=== PATIENT | male | born 1960 | race Asian ===

== ENCOUNTER → 2022-02-26 10:50 | Outpatient (CLI) | payer OTHER, SELFPAY ==
[2022-02-26 12:09] LABS: Add Manual Diff / Slide Review NO; Basophils Absolute Auto 0 /uL (0-100); Basophils Percent Auto 0.5 % (0-2); Eosinophils Absolute Auto 100 /uL (0-450); Eosinophils Percent Auto 3.1 % (2-4); Hematocrit 46.8 % (41-53); Hemoglobin 15.7 g/dL (13.5-17.5); Lymphocytes Absolute Auto 1600 /uL (1100-4500); Lymphocytes Percent Auto 33.5 % (25-40); Mean Corpuscular HGB Conc 33.6 % (30-36); Mean Corpuscular Volume 89.3 fL (80-100); Monocytes Absolute Auto 400 /uL (0-900); Monocytes Percent Auto 8.5 % (3-14); Neutrophils Absolute Auto 2500 /uL (1500-7000); Neutrophils Percent Auto 54.4 % (50-75); Platelet Count 285 X10^3/uL (150-400); Red Blood Cell Count 5.24 X10^6/uL (4.5-5.9); Red Cell Distribution Width 13.7 % (11.6-14.8); White Blood Cell Count 4.7 X10^3/uL (4.5-11.0)
[2022-02-26 12:33] LABS: Alanine Aminotransferase 46 IU/L (<50); Albumin 4.5 g/dL (3.5-5.0); Albumin Globulin Ratio 1.3 (1.0-2.8); Alkaline Phosphatase 82 U/L (38-126); Aspartate Aminotransferase 44 IU/L (17-59); BUN Creatinine Ratio 26.5 (6-22); Bilirubin Total 1.2 mg/dL (0.2-1.3); Blood Urea Nitrogen 26 mg/dL (9-20); Calcium 8.8 mg/dL (8.4-10.2); Carbon Dioxide 28 mmol/L (22-32); Chloride 106 mmol/L (98-107); Cholesterol 132 mg/dL (140-199); Estimated Glomerular Filt Rate > 60 mL/min (>60); Globulin 3.5 g/dL (1.7-4.1); Glucose 91 mg/dL (80-110); HDL Cholesterol 42 mg/dL (40-60); HEMOLYSIS < 15 (0-50); LDL Cholesterol Calculated 75 mg/dL (<100); Potassium 4.7 mmol/L (3.4-5.1); Sodium 142 mmol/L (137-145); Triglycerides 75 mg/dL (35-150)
== END ==
PROVIDERS: PCP Family Medicine; Referring Provider Family Medicine; Visit Provider Family Medicine
DX: E78.5 Hyperlipidemia, unspecified (principal); I10 Essential (primary) hypertension; Z12.11 Encounter for screening for malignant neoplasm of colon
CPT/HCPCS: 36415; 80053; 80061; 85025

== ENCOUNTER → 2022-05-14 12:12 | Outpatient (CLI) | payer OTHER, SELFPAY ==
[2022-05-14 14:31] LABS: Prostate Specific Antigen Scrn 3.83 ng/mL (0.1-4.0)
== END ==
PROVIDERS: PCP Family Medicine; Referring Provider Family Medicine; Visit Provider Family Medicine
DX: Z12.5 Encounter for screening for malignant neoplasm of prostate (principal)
CPT/HCPCS: 36415; G0103

== ENCOUNTER → 2022-07-29 09:04 | Outpatient (CLI) | payer OTHER, SELFPAY ==
[2022-07-29 11:05] LABS: COVID19 -Nasal RAPID Negative (Negative)
== END ==
PROVIDERS: PCP Family Medicine; Visit Provider Surgery
DX: Z20.822 Contact with and (suspected) exposure to COVID-19 (principal); Z01.812 Encounter for preprocedural laboratory examination
CPT/HCPCS: 87635; C9803

== ENCOUNTER 2022-07-30 12:12 | Day surgery (SDC) | payer OTHER, SELFPAY ==
[2022-07-30] VITALS (7 sets, daily range): BP systolic 71–130; BP diastolic 35–89; PULSE 68–92; RESP 15–17; TEMP 36.1–36.3; O2SAT 94–96; BMI 28.7
[2022-07-30] MEDS: LACTATED RINGERS 1,000 ML 200 ML IV (12:56)
--- NOTE | 2022-07-30 12:59 | PM.HP.1 ---
History of Present Illness History of Present Illness Date Patient Seen: 07/30/22 Time Patient Seen: 12:59 Chief complaint: SDC Narrative: The patient presents for colorectal screening. Personal history of colonic polyps, last colonoscopy 10 years ago.. No personal or family history of colon cancer. On further history denies any recent gastrointestinal symptoms. No nausea, vomiting, abdominal pain, loss of appetite, unexplained weight loss, change in bowel habits, diarrhea, constipation, melena, hematochezia, or bright red blood per rectum. Patient History Medical History (Updated 05/14/22 @ 11:56 by Chris Mcgill DO) Allergies (~1967) Chicken pox (~1965) Chronic back pain (~2017) Eczema (~2013) Glaucoma (~2015) Gout (~2014) Hearing loss (~2020) HTN (hypertension) (~2005) Hyperlipidemia (~2014) Madarosis (~2017) Neck pain (~2017) Osteoarthritis (~2020) Pneumonia (~2018) Prediabetes (~2019) Restless leg syndrome (~2019) Retinal detachment (~2015) Sleep apnea (~2019) Suspicious nevus Urinary incontinence (~2019) Viral URI with cough Surgical History (Updated 02/11/22 @ 21:18 by Carol Maldonado) Anesthesia History of colonoscopy (~2011) History of inguinal hernia repair (~1957) History of oral surgery (~1976) Suture of skin wound (~1966) Family & Social History Family History (Updated 02/11/22 @ 21:19 by Carol Maldonado) Father Hypertension Hyperlipidemia Mother Hypertension Grandmother Alzheimer's disease Social History: household members spouse Tobacco & Substance use: Smoking Status Never smoker alcohol intake never Substance Use Type does not use Meds Home Medications and Allergies Home Medications Medication Instructions Recorded Confirmed Type lisinopril 10 mg tablet 10 mg PO DAILY 01/07/22 07/30/22 History simvastatin 20 mg tablet 20 mg PO DAILY 01/07/22 07/30/22 History tamsulosin 0.4 mg capsule 0.8 mg PO DAILY #180 caps 04/08/22 07/30/22 Rx Allergies Allergy/AdvReac Type Severity Reaction Status Date / Time cat dander Allergy Mild Verified 07/30/22 12:43 dog dander Allergy Mild Verified 07/30/22 12:43 grass pollen Allergy Mild Verified 07/30/22 12:43 Exam Vital Signs (past 8 hours): - 07/30/22 12:48 Temperature 97.1 F L Pulse Rate 92 H Respiratory Rate 16 Blood Pressure 130/89 Pulse Oximetry 94 Oxygen Delivery Method Room Air Oxygen Delivery Method Room Air Narrative Exam Narrative: General adult male alert oriented no acute distress Abdomen soft nontender nondistended Assessment & Plan Assessment & Plan narrative: The patient requires colorectal screening and colonoscopy is recommended. Technical details were discussed. Risks, benefits, alternatives explained. Risks including but not limited to myocardial infarction, aspiration, bleeding, pain, missed lesion, incomplete examination, need for further radiographic studies, colonic perforation, and need for major abdominal surgery were discussed. All questions were answered to their satisfaction, and they are in agreement with this plan. Time Spent With Patient Critical Care time: I spent a total of [] minutes of critical care time on this patient's care today; this time is exclusive of procedural time.
--- NOTE | 2022-07-30 13:00 | PM.OP.COLON ---
Operative Date/Time/Diagnoses Date of procedure: 07/30/22 Time of procedure: 13:00 Pre-op diagnosis: Screening colonoscopy Post-op diagnosis: same Procedure & Clinicians Study performed: Colonoscopy Same procedure as scheduled: Yes Indications: Screening Surgeon: Willard Talavera Procedure Notes Procedure in detail: The history and physical was performed/updated and the patient is ASA class is 2. The procedure was discussed in detail with the patient. Potential risks complications including infection, bleeding, missed diagnosis, perforation, need for surgery, and were explained. Their questions were answered and informed consent was obtained. Patient was brought to the procedure room and placed standard monitoring equipment. The patient's vital signs were monitored continuously throughout the entire procedure. Prior to starting time-out was performed. The patient was placed in the left lateral recumbent position. Procedural sedation was administered by anesthesia. Examination began with a thorough inspection of the perianal area there was no evidence of fissures, fistulae, external hemorrhoids or cutaneous malignancy. The colonoscopy scope was then placed into the anal canal and was advanced to the cecum, which was identified by the ileocecal valve, the appendiceal orifice and the confluence of the taenia. The scope was then slowly withdrawn examining colon thoroughly in all directions, irrigating it of any residual stool. FINDINGS 1. No masses or polyps 2. Normal colonoscopy The patient tolerated the procedure well. They will be discharged once criteria are met. The prep was of good/excellent quality. The withdrawl time was 6 minutes. Specimen(s): none sent Complications: none Impression: Normal colonoscopy Post-procedure Recommendations: Colonoscopy in 10 years and High fiber diet Disposition: same day surgery
== END 2022-07-30 15:03 | disposition home or self-care (01) ==
PROVIDERS: PCP Family Medicine; Referring Provider Surgery; Visit Provider Surgery
PROC: 0DJD8ZZ Inspection of Lower Intestinal Tract, Via Natural or Artificial Opening Endoscopic (ICD-10-PCS; CPT 45378; principal; 2022-07-30 13:15)
DX: Z12.11 Encounter for screening for malignant neoplasm of colon (principal); I10 Essential (primary) hypertension; E78.5 Hyperlipidemia, unspecified; R73.03 Prediabetes; G47.30 Sleep apnea, unspecified
CPT/HCPCS: 45378; J2704

== ENCOUNTER → 2023-02-24 10:35 | Outpatient (CLI) | payer BC, OTHER, SELFPAY ==
[2023-02-24 12:22] LABS: Add Manual Diff / Slide Review NO; Basophils Absolute Auto 0 /uL (0-100); Basophils Percent Auto 0.5 % (0-2); Eosinophils Absolute Auto 100 /uL (0-450); Eosinophils Percent Auto 2.7 % (2-4); Hematocrit 45.3 % (41-53); Hemoglobin 15.8 g/dL (13.5-17.5); Lymphocytes Absolute Auto 1500 /uL (1100-4500); Lymphocytes Percent Auto 35.8 % (25-40); Mean Corpuscular HGB Conc 34.8 % (30-36); Mean Corpuscular Hemoglobin 30.5 PG (26-34); Mean Corpuscular Volume 87.6 fL (80-100); Monocytes Absolute Auto 400 /uL (0-900); Monocytes Percent Auto 9.9 % (3-14); Neutrophils Absolute Auto 2200 /uL (1500-7000); Neutrophils Percent Auto 51.1 % (50-75); Platelet Count 256 X10^3/uL (150-400); Red Blood Cell Count 5.17 X10^6/uL (4.5-5.9); Red Cell Distribution Width 13.4 % (11.6-14.8); White Blood Cell Count 4.3 X10^3/uL (4.5-11.0)
[2023-02-24 12:54] LABS: Alanine Aminotransferase 37 IU/L (<50); Albumin 4.4 g/dL (3.5-5.0); Albumin Globulin Ratio 1.3 (1.0-2.8); Alkaline Phosphatase 63 U/L (38-126); Aspartate Aminotransferase 45 IU/L (17-59); BUN Creatinine Ratio 23.2 (6-22); Bilirubin Total 2.9 mg/dL (0.2-1.3); Blood Urea Nitrogen 23 mg/dL (9-20); Calcium 8.6 mg/dL (8.4-10.2); Carbon Dioxide 27 mmol/L (22-32); Chloride 104 mmol/L (98-107); Cholesterol 126 mg/dL (140-199); Estimated Glomerular Filt Rate > 60 mL/min (>60); Globulin 3.4 g/dL (1.7-4.1); Glucose 97 mg/dL (80-110); HDL Cholesterol 42 mg/dL (40-60); HEMOLYSIS < 15 (0-50); LDL Cholesterol Calculated 74 mg/dL (<100); Potassium 3.9 mmol/L (3.4-5.1); Sodium 138 mmol/L (137-145); Total Protein 7.8 g/dL (6.3-8.2); Triglycerides 48 mg/dL (35-150)
[2023-02-24 13:22] LABS: Prostate Specific Antigen Scrn 4.07 ng/mL (0.1-4.0)
[2023-02-25 05:12] LABS: x Labcorp Estim. Avg Glu (eAG) 111 mg/dL (.); x Labcorp Hemoglobin A1c 5.5 % (4.8-5.6)
== END ==
PROVIDERS: PCP Family Medicine; Referring Provider Family Medicine; Visit Provider Family Medicine
DX: E78.5 Hyperlipidemia, unspecified (principal); I10 Essential (primary) hypertension; Z12.5 Encounter for screening for malignant neoplasm of prostate; R73.03 Prediabetes
CPT/HCPCS: 36415; 80053; 80061; 83036; 85025; G0103

== ENCOUNTER 2023-08-15 13:45 | Outpatient (RCR) | payer BC, MEDICARE, OTHER, SELFPAY ==
--- NOTE | 2023-04-17 17:36 | PT.OIE ---
Current Diagnoses Other chronic pain (04/17/23) Stiffness of other specified joint, not elsewhere classified (04/17/23) Cervicalgia (04/17/23) Dorsalgia, unspecified (04/17/23) Past Medical History (Last Updated 03/06/23 @ 16:01 by Chris Mcgill DO) Allergies (~1967) Chicken pox (~1965) Chronic back pain (~2017) Eczema (~2013) Excessive cerumen in right ear canal Glaucoma (~2015) Gout (~2014) Hearing loss (~2020) HTN (hypertension) (~2005) Hyperlipidemia (~2014) Madarosis (~2017) Neck pain (~2017) Osteoarthritis (~2020) Pneumonia (~2018) Prediabetes (~2019) Restless leg syndrome (~2019) Retinal detachment (~2015) Sleep apnea (~2019) Suspicious nevus Urinary incontinence (~2019) Viral URI with cough Past Surgical History (Last Updated 02/11/22 @ 21:18 by Carol Maldonado) Anesthesia History of colonoscopy (~2011) History of inguinal hernia repair (~1957) History of oral surgery (~1976) Suture of skin wound (~1966) Visit Care Team Role Provider Type Chris Mcgill DO Attending Provider Physician Family Provider Primary Care Provider Referring Provider Specialty: [facility] Address: [address] [place] [address], [facility] Email: Physical Therapy Initial Evaluation PT-OP-A Visit Information Start: 04/17/23 14:20 Freq: Status: Active Protocol: Document 04/17/23 11:00 DCW (Rec: 04/17/23 14:33 [facility] [id number]) Out-Patient Physical Therapy Visit Information Visit Information Visit Type Initial Evaluation Visit Start Time 11:00 Visit Stop Time 11:45 Total Visit Minutes 45 Visit Number 1 Number of LABORER GOLD LEAF Visits 0 Evaluation Information Evaluation Date 04/17/23 PT-OP-B Current Condition Start: 04/17/23 14:20 Freq: Status: Active Protocol: Document 04/17/23 11:00 DCW (Rec: 04/17/23 14:33 [facility] [id number]) Current Condition History of Current Condition Onset Date Long-standing history Current Complaints chronic low back and neck pain History of Current Condition Pt is a 63 year old male with a multi-year history of cervical and low back pain. 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 Reports that he was treated for this pain in the [employer] between [id number], was then transferred to [place], and had PT between [id number]. Pt retired in 2021, noticed his pain decreased significantly, but then began working once again, and his pain all returned. Pt notes that as a dentist, he has to maintain a fairly specific posture when bending over and working on a patient. Pt reports he is always on the pt 's right-hand side, which then , as he faces them, causes him to lean to his right to get to their mouth. Pt reports that he has occasionally experienced numbness in his hands, bad enough that he had difficulty holding his work instruments, but it has not happened for a while, and he can't remember any specific pattern. Additionally notes his low back typically bothers him when bending over to lift heavier objects, despite using appropriate body mechanics. Treatment Goals Patient/Caregiver Goals Pt plans to work another five years until his second jail, would like to be able to do it pain free. PT-OP-C Subjective Start: 04/17/23 14:20 Freq: Status: Active Protocol: Document 04/17/23 11:00 DCW (Rec: 04/17/23 14:33 DCW [id number]) OP-PT Subjective Patient Comments Patient Comments Pt reports his previous PT treatments consisted of ~15 minutes of the therapist bending and twisting his neck , and then using hot or cold packs. Patient Reported Progress Same Patient Questionnaires Oswestry Low Back Index Oswestry Score 4/50 = 8% PT-OP-F Manual Assessment Start: 04/17/23 14:20 Freq: Status: Active Protocol: Document 04/17/23 11:00 DCW (Rec: 04/17/23 14:40 DCW [id number]) Manual Assessments Soft Tissue Assessment Soft Tissue Mobility Assessment Moderate-severe tone R cervical paraspinals, R suboccipitals, R upper trap, and R levator scap with tenderness to palpation 3/4: wincing and withdraw. Mild-moderate tone bilateral lumbar paraspinals PT-OP-K Range of Motion Start: 04/17/23 14:20 Freq: Status: Active Protocol: Document 04/17/23 11:00 DCW (Rec: 04/17/23 14:40 [facility] [id number]) Cervical Spine Range of Motion Cervical Spine Active Degrees Testing Position Sitting Flexion 48 Extension 45 Rotation Left 50 Rotation Right 53 Lateral Flexion Left 33 Lateral Flexion Right 31 ROM Limitations Soft Tissue Tightness,Muscle Tone,Pain Comments R-sided stiffness felt with bilateral lateral flexion Lumbar Spine Range of Motion Lumbar Spine Active Degrees Testing Position Standing Flexion 60 Extension 15 PT-OP-L Special Tests Start: 04/17/23 14:20 Freq: Status: Active Protocol: Document 04/17/23 11:00 DCW (Rec: 04/17/23 14:40 [facility] [id number]) Special Tests Cervical Spine Special Tests Slump Test Results Negative Traction Test Results Negative Spurling's Test Test Results Negative Passive Neck Flexion Test Results Negative Foraminal Compression Test Results Negative Lumbar Spine Special Tests Vertical Spine Loading Test Results Negative Straight Leg Raise Test Results Negative Manual Traction Test Results Negative Compression Test Results Negative A-P Shearing Test Results Negative PT-OP-Q Treatments Start: 04/17/23 14:20 Freq: Status: Active Protocol: Document 04/17/23 11:00 DCW (Rec: 04/17/23 14:34 [facility] [id number]) Therapeutic Exercises Sitting Exercises SCM Sitting Exercise Name SCM stretch Side right Comments HEP Upper trap Sitting Exercise Name Upper trap stretch Side right Comments HEP PT-OP-T Assessment and Plan Start: 04/17/23 14:20 Freq: Status: Active Protocol: Document 04/17/23 11:00 DCW (Rec: 04/17/23 17:36 [facility] [id number]) Physical Therapy Assessment Rehab Potential Rehabilitation Potential Good Evaluation Complexity Number of Personal Factors/Comorbidities 1-2 Number of Body Systems Impaired 4 or More Clinical Presentation at Evaluation Evolving Impairments Impairments Activity Tolerance,Functional Activities,Functional Mobility ,Pain,ROM,Soft Tissue Mobility ,Strength Goals Three Impairment Pt unable to lift heavier objects without increased low back pain Intermediate Goal (LTG) Pt to demonstrate ability to lift from floor and transfer 50# without any increase in low back pain in order to return to usual hobby activities LTG Duration 07/16/23 Two Impairment Pt demonstrates restricted cervical ROM Molecular Technologist Goal (LTG) Pt to increase cervical flexion and bilateral rotation to at least 70? each in order to improve ability to appropriately turn head to look for traffic while driving . LTG Duration 07/16/23 One Impairment Pt does not have an appropriate home exercise program Short Term Goal (STG) Pt to be independent and compliant with an appropriate home exercise program STG Duration 05/18/23 Assessment Summary Assessment Pt presents with signs and symptoms consistent with cervical pain and increased tone caused by repeated poor posturing due to work ergonomics. Pt displays moderate-sever pain in right paraspinals, upper trap, levator, and suboccipitals. At time of the evaluation, completely unable to replicate any radicular symptoms or any positive cervical or lumbar special tests, pt just seems to be hypertonic throughout right cervical and bilateral lumbar paraspinal musculature. Will likely benefit from skilled PT focusing on STM and stretching to improve tone, strengthening to increase stability, and education on abdominal bracing to help support and protect low back while lifting. Physical Therapy Plan Frequency and Duration Frequency of Treatment 2x/Week Plan of Care Start Date 04/17/23 Plan of Care End Date 07/16/23 Therapeutic Interventions Therapeutic Interventions Home Exercise Program,Joint Mobilizations,Lymphedema Management,Neuromuscular Re- education,Orthotic/Prosthetic Management,Self-Care/Home Management,Sensory Integration ,Soft Tissue Mobilization, Therapeutic Activities, Therapeutic Exercises Modalities Cold Pack/Ice Massage,Electric Stimulation,Hot Packs, Ultrasound Next Visit Focus/Plan Next Note Type Treatment Note Next Visit Plan STM, flexibility, strengthening
--- NOTE | 2023-04-17 17:36 | PT.OPPOC ---
Physical, Occupational & Speech Therapy At [facility] Current Diagnoses Other chronic pain (04/17/23) Stiffness of other specified joint, not elsewhere classified (04/17/23) Cervicalgia (04/17/23) Dorsalgia, unspecified (04/17/23) Visit Care Team Role Provider Type Chris Mcgill DO Attending Provider Physician Family Provider Primary Care Provider Referring Provider Specialty: Family Practice Address: [address] [place] [address], [facility] Email: Plan Of Care PT-OP-T Assessment and Plan Start: 04/17/23 14:20 Freq: Status: Active Protocol: Document 04/17/23 11:00 DCW (Rec: 04/17/23 17:36 DCW [id number]) Physical Therapy Assessment Rehab Potential Rehabilitation Potential Good Evaluation Complexity Number of Personal Factors/Comorbidities 1-2 Number of Body Systems Impaired 4 or More Clinical Presentation at Evaluation Evolving Impairments Impairments Activity Tolerance,Functional Activities,Functional Mobility ,Pain,ROM,Soft Tissue Mobility ,Strength Goals Three Impairment Pt unable to lift heavier objects without increased low back pain Comic Book Designer Goal (LTG) Pt to demonstrate ability to lift from floor and transfer 50# without any increase in low back pain in order to return to usual hobby activities LTG Duration 07/16/23 Two Impairment Pt demonstrates restricted cervical ROM Comic Book Designer Goal (LTG) Pt to increase cervical flexion and bilateral rotation to at least 70? each in order to improve ability to appropriately turn head to look for traffic while driving . LTG Duration 07/16/23 One Impairment Pt does not have an appropriate home exercise program Short Term Goal (STG) Pt to be independent and compliant with an appropriate home exercise program STG Duration 05/18/23 Assessment Summary Assessment Pt presents with signs and symptoms consistent with cervical pain and increased tone caused by repeated poor posturing due to work ergonomics. Pt displays moderate-sever pain in right paraspinals, upper trap, levator, and suboccipitals. At time of the evaluation, completely unable to replicate any radicular symptoms or any positive cervical or lumbar special tests, pt just seems to be hypertonic throughout right cervical and bilateral lumbar paraspinal musculature. Will likely benefit from skilled PT focusing on STM and stretching to improve tone, strengthening to increase stability, and education on abdominal bracing to help support and protect low back while lifting. Physical Therapy Plan Frequency and Duration Frequency of Treatment 2x/Week Plan of Care Start Date 04/17/23 Plan of Care End Date 07/16/23 Therapeutic Interventions Therapeutic Interventions Home Exercise Program,Joint Mobilizations,Lymphedema Management,Neuromuscular Re- education,Orthotic/Prosthetic Management,Self-Care/Home Management,Sensory Integration ,Soft Tissue Mobilization, Therapeutic Activities, Therapeutic Exercises Modalities Cold Pack/Ice Massage,Electric Stimulation,Hot Packs, Ultrasound Next Visit Focus/Plan Next Note Type Treatment Note Next Visit Plan STM, flexibility, strengthening Plan of Care Dates Plan of Care Start Date 04/17/23 Plan of Care End Date 07/16/23 Electronically Signed by: Justin Bernard, PT 04/17/23 [id number] If you are in agreement with this Plan of Care, please return a signed and dated copy. I have reviewed this Plan of Care and certify that the skilled therapy services above are required to meet the patient?s needs. Physician Signature Date Printed Name and Credentials Clinical Instructor Signature Printed Name and Credentials
--- NOTE | 2023-04-17 17:37 | PT.OPPOC ---
Physical, Occupational & Speech Therapy At [facility] Current Diagnoses Other chronic pain (04/17/23) Stiffness of other specified joint, not elsewhere classified (04/17/23) Cervicalgia (04/17/23) Dorsalgia, unspecified (04/17/23) Visit Care Team Role Provider Type Chris Mcgill DO Attending Provider Physician Family Provider Primary Care Provider Referring Provider Specialty: Family Practice Address: [address] [place] [address], [facility] Email: Plan Of Care PT-OP-T Assessment and Plan Start: 04/17/23 14:20 Freq: Status: Active Protocol: Document 04/17/23 11:00 DCW (Rec: 04/17/23 17:36 DCW [id number]) Physical Therapy Assessment Rehab Potential Rehabilitation Potential Good Evaluation Complexity Number of Personal Factors/Comorbidities 1-2 Number of Body Systems Impaired 4 or More Clinical Presentation at Evaluation Evolving Impairments Impairments Activity Tolerance,Functional Activities,Functional Mobility ,Pain,ROM,Soft Tissue Mobility ,Strength Goals Three Impairment Pt unable to lift heavier objects without increased low back pain Appliance Repair Technician Goal (LTG) Pt to demonstrate ability to lift from floor and transfer 50# without any increase in low back pain in order to return to usual hobby activities LTG Duration 07/16/23 Two Impairment Pt demonstrates restricted cervical ROM Appliance Repair Technician Goal (LTG) Pt to increase cervical flexion and bilateral rotation to at least 70? each in order to improve ability to appropriately turn head to look for traffic while driving . LTG Duration 07/16/23 One Impairment Pt does not have an appropriate home exercise program Short Term Goal (STG) Pt to be independent and compliant with an appropriate home exercise program STG Duration 05/18/23 Assessment Summary Assessment Pt presents with signs and symptoms consistent with cervical pain and increased tone caused by repeated poor posturing due to work ergonomics. Pt displays moderate-sever pain in right paraspinals, upper trap, levator, and suboccipitals. At time of the evaluation, completely unable to replicate any radicular symptoms or any positive cervical or lumbar special tests, pt just seems to be hypertonic throughout right cervical and bilateral lumbar paraspinal musculature. Will likely benefit from skilled PT focusing on STM and stretching to improve tone, strengthening to increase stability, and education on abdominal bracing to help support and protect low back while lifting. Physical Therapy Plan Frequency and Duration Frequency of Treatment 2x/Week Plan of Care Start Date 04/17/23 Plan of Care End Date 07/16/23 Therapeutic Interventions Therapeutic Interventions Home Exercise Program,Joint Mobilizations,Lymphedema Management,Neuromuscular Re- education,Orthotic/Prosthetic Management,Self-Care/Home Management,Sensory Integration ,Soft Tissue Mobilization, Therapeutic Activities, Therapeutic Exercises Modalities Cold Pack/Ice Massage,Electric Stimulation,Hot Packs, Ultrasound Next Visit Focus/Plan Next Note Type Treatment Note Next Visit Plan STM, flexibility, strengthening Plan of Care Dates Plan of Care Start Date 04/17/23 Plan of Care End Date 07/16/23 Electronically Signed by: Justin Bernard, PT 04/17/23 [id number] If you are in agreement with this Plan of Care, please return a signed and dated copy. I have reviewed this Plan of Care and certify that the skilled therapy services above are required to meet the patient?s needs. Physician Signature Date Printed Name and Credentials Clinical Instructor Signature Printed Name and Credentials
--- NOTE | 2023-04-21 13:31 | PT.OTN ---
Current Diagnoses Other chronic pain (04/21/23) Stiffness of other specified joint, not elsewhere classified (04/21/23) Cervicalgia (04/21/23) Dorsalgia, unspecified (04/21/23) Physical Therapy Treatment Note PT-OP-A Visit Information Start: 04/17/23 14:20 Freq: Status: Active Protocol: Document 04/21/23 12:45 DCW (Rec: 04/21/23 13:30 DCW [id number]) Out-Patient Physical Therapy Visit Information Visit Information Visit Type Treatment Note Visit Start Time 11:00 Visit Stop Time 11:45 Total Visit Minutes 45 Visit Number 2 Number of BOTTOMING MACHINE OPERATOR Visits 0 Evaluation Information Evaluation Date 04/17/23 PT-OP-B Current Condition Start: 04/17/23 14:20 Freq: Status: Active Protocol: Document 04/17/23 11:00 DCW (Rec: 04/17/23 14:33 DCW [id number]) Current Condition History of Current Condition Onset Date Long-standing history Current Complaints chronic low back and neck pain History of Current Condition Pt is a 63 year old male with a multi-year history of cervical and low back pain. 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 Reports that he was treated for this pain in the [employer] between [id number], was then transfered to [place], and had PT between 8684-2095. Pt retired in 2021, noticed his pain decreased significantly, but then began working once again, and his pain all returned. Pt notes that as a dentist, he has to maintain a fairly specific posture when bending over and working on a patient. Pt reports he is always on the pt 's right-hand side, which then , as he faces them, causes him to lean to his right to get to their mouth. Pt reports that he has occasionally experienced numbness in his hands, bad enough that he had difficulty holding his work instruments, but it has not happened for a while, and he can't remember any specific pattern. Additionally notes his low back typically bothers him when bending over to lift heavier objects, despite using appropriate body mechanics. Treatment Goals Patient/Caregiver Goals Pt plans to work another five years until his second fdc, would like to be able to do it pain free. PT-OP-C Subjective Start: 04/17/23 14:20 Freq: Status: Active Protocol: Document 04/21/23 12:45 DCW (Rec: 04/21/23 13:30 DCW [id number]) OP-PT Subjective Patient Comments Patient Comments Pt reports he is feeling about the same. PT-OP-F Manual Assessment Start: 04/17/23 14:20 Freq: Status: Active Protocol: Document 04/17/23 11:00 DCW (Rec: 04/17/23 14:40 DCW [id number]) Manual Assessments Soft Tissue Assessment Soft Tissue Mobility Assessment Moderate-severe tone R cervical paraspinals, R suboccipitals, R upper trap, and R levator scap with tenderness to palpation 3/4: wincing and withdraw. Mild-moderate tone bilateral lumbar paraspinals PT-OP-K Range of Motion Start: 04/17/23 14:20 Freq: Status: Active Protocol: Document 04/17/23 11:00 DCW (Rec: 04/17/23 14:40 DCW [id number]) Cervical Spine Range of Motion Cervical Spine Active Degrees Testing Position Sitting Flexion 48 Extension 45 Rotation Left 50 Rotation Right 53 Lateral Flexion Left 33 Lateral Flexion Right 31 ROM Limitations Soft Tissue Tightness,Muscle Tone,Pain Comments R-sided stiffness felt with bilateral lateral flexion Lumbar Spine Range of Motion Lumbar Spine Active Degrees Testing Position Standing Flexion 60 Extension 15 PT-OP-L Special Tests Start: 04/17/23 14:20 Freq: Status: Active Protocol: Document 04/17/23 11:00 DCW (Rec: 04/17/23 14:40 DCW [id number]) Special Tests Cervical Spine Special Tests Slump Test Results Negative Traction Test Results Negative Spurling's Test Test Results Negative Passive Neck Flexion Test Results Negative Foraminal Compression Test Results Negative Lumbar Spine Special Tests Vertical Spine Loading Test Results Negative Straight Leg Raise Test Results Negative Manual Traction Test Results Negative Compression Test Results Negative A-P Shearing Test Results Negative PT-OP-Q Treatments Start: 04/17/23 14:20 Freq: Status: Active Protocol: Document 04/21/23 12:45 DCW (Rec: 04/21/23 13:30 DCW [id number]) Therapeutic Exercises Supine Exercises Chin tuck Supine Exercise Name Chin tuck/head lift Sitting Exercises Trunk Flexion Sitting Exercise Name Seated trunk flexion Reps/Minutes 30 hold Isometrics Sitting Exercise Name Isometric resistance vs towel Comments Cervical extension, lateral flexion Manual Therapy Treatment Soft Tissue Mobilization Cervical paraspinals Body Location Paraspinals, Suboccipitals, Upper Trap, SCM R>L Mobilization Type Strumming,Sustained Pressure, Trigger Point Release Manual Traction Cervical Details Manual cervical traction Body Position Supine PT-OP-T Assessment and Plan Start: 04/17/23 14:20 Freq: Status: Active Protocol: Document 04/21/23 12:45 DCW (Rec: 04/21/23 13:30 DCW [id number]) Physical Therapy Assessment Impairments Impairments Activity Tolerance,Functional Activities,Functional Mobility ,Pain,ROM,Soft Tissue Mobility ,Strength Goals Three Impairment Pt unable to lift heavier objects without increased low back pain Senior Living Goal (LTG) Pt to demonstrate ability to lift from floor and transfer 50# without any increase in low back pain in order to return to usual hobby activities LTG Duration 07/16/23 Two Impairment Pt demonstrates restricted cervical ROM Shop Foreman Goal (LTG) Pt to increase cervical flexion and bilateral rotation to at least 70? each in order to improve ability to appropriately turn head to look for traffic while driving . LTG Duration 07/16/23 One Impairment Pt does not have an appropriate home exercise program Short Term Goal (STG) Pt to be independent and compliant with an appropriate home exercise program STG Duration 05/18/23 Assessment Summary Assessment Pt continues to display quite significant tone throughout right cervical musculature, but responded well to both STM and TherEx today, no complaints of pain or difficulty at this time, agreeable to continue with HEP and additional strengthening. Physical Therapy Plan Frequency and Duration Frequency of Treatment 2x/Week Plan of Care Start Date 04/17/23 Plan of Care End Date 07/16/23 Therapeutic Interventions Therapeutic Interventions Home Exercise Program,Joint Mobilizations,Lymphedema Management,Neuromuscular Re- education,Orthotic/Prosthetic Management,Self-Care/Home Management,Sensory Integration ,Soft Tissue Mobilization, Therapeutic Activities, Therapeutic Exercises Modalities Cold Pack/Ice Massage,Electric Stimulation,Hot Packs, Ultrasound Next Visit Focus/Plan Next Note Type Treatment Note Next Visit Plan STM, flexibility, strengthening
--- NOTE | 2023-05-16 16:50 | PT.OTN ---
Current Diagnoses Other chronic pain (05/16/23) Stiffness of other specified joint, not elsewhere classified (05/16/23) Cervicalgia (05/16/23) Dorsalgia, unspecified (05/16/23) Physical Therapy Treatment Note PT-OP-A Visit Information Start: 04/17/23 14:20 Freq: Status: Active Protocol: Document 05/16/23 16:02 DCW (Rec: 05/16/23 16:50 DCW [id number]) Out-Patient Physical Therapy Visit Information Visit Information Visit Type Treatment Note Visit Start Time 16:02 Visit Stop Time 16:45 Total Visit Minutes 43 Visit Number 3 Number of TIME CLOCK INSPECTOR Visits 0 Evaluation Information Evaluation Date 04/17/23 PT-OP-B Current Condition Start: 04/17/23 14:20 Freq: Status: Active Protocol: Document 04/17/23 11:00 DCW (Rec: 04/17/23 14:33 DCW [id number]) Current Condition History of Current Condition Onset Date Long-standing history Current Complaints chronic low back and neck pain History of Current Condition Pt is a 63 year old male with a multi-year history of cervical and low back pain. 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 Pt retired in 2021, noticed his pain decreased significantly, but then began working once again, and his pain all returned. Pt notes that as a dentist, he has to maintain a fairly specific posture when bending over and working on a patient. Pt reports he is always on the pt 's right-hand side, which then , as he faces them, causes him to lean to his right to get to their mouth. Pt reports that he has occasionally experienced numbness in his hands, bad enough that he had difficulty holding his work instruments, but it has not happened for a while, and he can't remember any specific pattern. Additionally notes his low back typically bothers him when bending over to lift heavier objects, despite using appropriate body mechanics. Treatment Goals Patient/Caregiver Goals Pt plans to work another five years until his second care home, would like to be able to do it pain free. PT-OP-C Subjective Start: 04/17/23 14:20 Freq: Status: Active Protocol: Document 05/16/23 16:02 DCW (Rec: 05/16/23 16:50 DCW [id number]) OP-PT Subjective Patient Comments Patient Comments About the same. PT-OP-F Manual Assessment Start: 04/17/23 14:20 Freq: Status: Active Protocol: Document 04/17/23 11:00 DCW (Rec: 04/17/23 14:40 DCW [id number]) Manual Assessments Soft Tissue Assessment Soft Tissue Mobility Assessment Moderate-severe tone R cervical paraspinals, R suboccipitals, R upper trap, and R levator scap with tenderness to palpation 3/4: wincing and withdraw. Mild-moderate tone bilateral lumbar paraspinals PT-OP-K Range of Motion Start: 04/17/23 14:20 Freq: Status: Active Protocol: Document 04/17/23 11:00 DCW (Rec: 04/17/23 14:40 DCW [id number]) Cervical Spine Range of Motion Cervical Spine Active Degrees Testing Position Sitting Flexion 48 Extension 45 Rotation Left 50 Rotation Right 53 Lateral Flexion Left 33 Lateral Flexion Right 31 ROM Limitations Soft Tissue Tightness,Muscle Tone,Pain Comments R-sided stiffness felt with bilateral lateral flexion Lumbar Spine Range of Motion Lumbar Spine Active Degrees Testing Position Standing Flexion 60 Extension 15 PT-OP-L Special Tests Start: 04/17/23 14:20 Freq: Status: Active Protocol: Document 04/17/23 11:00 DCW (Rec: 04/17/23 14:40 DCW [id number]) Special Tests Cervical Spine Special Tests Slump Test Results Negative Traction Test Results Negative Spurling's Test Test Results Negative Passive Neck Flexion Test Results Negative Foraminal Compression Test Results Negative Lumbar Spine Special Tests Vertical Spine Loading Test Results Negative Straight Leg Raise Test Results Negative Manual Traction Test Results Negative Compression Test Results Negative A-P Shearing Test Results Negative PT-OP-Q Treatments Start: 04/17/23 14:20 Freq: Status: Active Protocol: Document 05/16/23 16:02 DCW (Rec: 05/16/23 16:50 DCW [id number]) Gym Equipment Therapeutic Ball Bridging Exercise Details Bridging Ball Size/Color Red - 55 cm Body Position Supine LTR Exercise Details LTR Ball Size/Color Red - 55 cm Body Position Supine Manual Therapy Treatment Soft Tissue Mobilization Lumbar Paraspinals Body Location Lumbar paraspinals Cervical paraspinals Body Location Paraspinals, Suboccipitals, Upper Trap, SCM R>L Mobilization Type Strumming,Sustained Pressure, Trigger Point Release Manual Traction Cervical Details Manual cervical traction Body Position Supine PT-OP-T Assessment and Plan Start: 04/17/23 14:20 Freq: Status: Active Protocol: Document 05/16/23 16:02 DCW (Rec: 05/16/23 16:50 DCW [id number]) Physical Therapy Assessment Impairments Impairments Activity Tolerance,Functional Activities,Functional Mobility ,Pain,ROM,Soft Tissue Mobility ,Strength Goals Three Impairment Pt unable to lift heavier objects without increased low back pain Dairy Science Teacher Goal (LTG) Pt to demonstrate ability to lift from floor and transfer 50# without any increase in low back pain in order to return to usual hobby activities LTG Duration 07/16/23 Two Impairment Pt demonstrates restricted cervical ROM [place] Goal (LTG) Pt to increase cervical flexion and bilateral rotation to at least 70? each in order to improve ability to appropriately turn head to look for traffic while driving . LTG Duration 07/16/23 One Impairment Pt does not have an appropriate home exercise program Short Term Goal (STG) Pt to be independent and compliant with an appropriate home exercise program STG Duration 05/18/23 Assessment Summary Assessment Pt continues to exhibit fairly moderate-severe cervical tone , R>L, admits he hasn't been super compliant with HEP. Reinforced importance of regular HEP performance, focused some today on core strengthening and lumbar mobility. Physical Therapy Plan Frequency and Duration Frequency of Treatment 2x/Week Plan of Care Start Date 04/17/23 Plan of Care End Date 07/16/23 Therapeutic Interventions Therapeutic Interventions Home Exercise Program,Joint Mobilizations,Lymphedema Management,Neuromuscular Re- education,Orthotic/Prosthetic Management,Self-Care/Home Management,Sensory Integration ,Soft Tissue Mobilization, Therapeutic Activities, Therapeutic Exercises Modalities Cold Pack/Ice Massage,Electric Stimulation,Hot Packs, Ultrasound Next Visit Focus/Plan Next Note Type Treatment Note Next Visit Plan STM, flexibility, strengthening
--- NOTE | 2023-05-19 17:18 | PT.OTN ---
Current Diagnoses Other chronic pain (05/19/23) Stiffness of other specified joint, not elsewhere classified (05/19/23) Cervicalgia (05/19/23) Dorsalgia, unspecified (05/19/23) Physical Therapy Treatment Note PT-OP-A Visit Information Start: 04/17/23 14:20 Freq: Status: Active Protocol: Document 05/19/23 16:30 DCW (Rec: 05/19/23 17:18 DCW [id number]) Out-Patient Physical Therapy Visit Information Visit Information Visit Type Treatment Note Visit Start Time 16:30 Visit Stop Time 17:15 Total Visit Minutes 45 Visit Number 4 Number of SUPPLY TEACHER Visits 0 Evaluation Information Evaluation Date 04/17/23 PT-OP-B Current Condition Start: 04/17/23 14:20 Freq: Status: Active Protocol: Document 04/17/23 11:00 DCW (Rec: 04/17/23 14:33 DCW [id number]) Current Condition History of Current Condition Onset Date Long-standing history Current Complaints chronic low back and neck pain History of Current Condition Pt is a 63 year old male with a multi-year history of cervical and low back pain. 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 Pt retired in 2021, noticed his pain decreased significantly, but then began working once again, and his pain all returned. Pt notes that as a dentist, he has to maintain a fairly specific posture when bending over and working on a patient. Pt reports he is always on the pt 's right-hand side, which then , as he faces them, causes him to lean to his right to get to their mouth. Pt reports that he has occasionally experienced numbness in his hands, bad enough that he had difficulty holding his work instruments, but it has not happened for a while, and he can't remember any specific pattern. Additionally notes his low back typically bothers him when bending over to lift heavier objects, despite using appropriate body mechanics. Treatment Goals Patient/Caregiver Goals Pt plans to work another five years until his second senior care, would like to be able to do it pain free. PT-OP-C Subjective Start: 04/17/23 14:20 Freq: Status: Active Protocol: Document 05/19/23 16:30 DCW (Rec: 05/19/23 17:18 DCW [id number]) OP-PT Subjective Patient Comments Patient Comments Pt notes no real change. PT-OP-F Manual Assessment Start: 04/17/23 14:20 Freq: Status: Active Protocol: Document 04/17/23 11:00 DCW (Rec: 04/17/23 14:40 DCW [id number]) Manual Assessments Soft Tissue Assessment Soft Tissue Mobility Assessment Moderate-severe tone R cervical paraspinals, R suboccipitals, R upper trap, and R levator scap with tenderness to palpation 3/4: wincing and withdraw. Mild-moderate tone bilateral lumbar paraspinals PT-OP-K Range of Motion Start: 04/17/23 14:20 Freq: Status: Active Protocol: Document 04/17/23 11:00 DCW (Rec: 04/17/23 14:40 DCW [id number]) Cervical Spine Range of Motion Cervical Spine Active Degrees Testing Position Sitting Flexion 48 Extension 45 Rotation Left 50 Rotation Right 53 Lateral Flexion Left 33 Lateral Flexion Right 31 ROM Limitations Soft Tissue Tightness,Muscle Tone,Pain Comments R-sided stiffness felt with bilateral lateral flexion Lumbar Spine Range of Motion Lumbar Spine Active Degrees Testing Position Standing Flexion 60 Extension 15 PT-OP-L Special Tests Start: 04/17/23 14:20 Freq: Status: Active Protocol: Document 04/17/23 11:00 DCW (Rec: 04/17/23 14:40 DCW [id number]) Special Tests Cervical Spine Special Tests Slump Test Results Negative Traction Test Results Negative Spurling's Test Test Results Negative Passive Neck Flexion Test Results Negative Foraminal Compression Test Results Negative Lumbar Spine Special Tests Vertical Spine Loading Test Results Negative Straight Leg Raise Test Results Negative Manual Traction Test Results Negative Compression Test Results Negative A-P Shearing Test Results Negative PT-OP-Q Treatments Start: 04/17/23 14:20 Freq: Status: Active Protocol: Document 05/19/23 16:30 DCW (Rec: 05/19/23 17:18 DCW [id number]) Therapeutic Exercises Prone Exercises I's, Y's T's Prone Exercise Name Prone I's, Y's T's Side bilateral Resistance 4# Other Exercises Wall clock Other Exercise Name Wall clock Resistance Green loop Resisted Ambulation Other Exercise Name Resisted UE Side-stepping Resistance Green loop Manual Therapy Treatment Soft Tissue Mobilization Cervical paraspinals Body Location Paraspinals, Suboccipitals, Upper Trap, SCM R>L Mobilization Type Strumming,Sustained Pressure, Trigger Point Release Manual Traction Cervical Details Manual cervical traction Body Position Supine PT-OP-T Assessment and Plan Start: 04/17/23 14:20 Freq: Status: Active Protocol: Document 05/19/23 16:30 DCW (Rec: 05/19/23 17:18 DCW [id number]) Physical Therapy Assessment Impairments Impairments Activity Tolerance,Functional Activities,Functional Mobility ,Pain,ROM,Soft Tissue Mobility ,Strength Goals Three Impairment Pt unable to lift heavier objects without increased low back pain Vacuum Tank Tender Goal (LTG) Pt to demonstrate ability to lift from floor and transfer 50# without any increase in low back pain in order to return to usual hobby activities LTG Duration 07/16/23 Two Impairment Pt demonstrates restricted cervical ROM Vacuum Tank Tender Goal (LTG) Pt to increase cervical flexion and bilateral rotation to at least 70? each in order to improve ability to appropriately turn head to look for traffic while driving . LTG Duration 07/16/23 One Impairment Pt does not have an appropriate home exercise program Short Term Goal (STG) Pt to be independent and compliant with an appropriate home exercise program STG Duration 05/18/23 Assessment Summary Assessment Pt responded well with new shoulder strengthening exercises, agreeable to additional HEP I's, Y's T's. Should help assist improve shoulder positioning due to increased upper trap and levator tone. Physical Therapy Plan Frequency and Duration Frequency of Treatment 2x/Week Plan of Care Start Date 04/17/23 Plan of Care End Date 07/16/23 Therapeutic Interventions Therapeutic Interventions Home Exercise Program,Joint Mobilizations,Lymphedema Management,Neuromuscular Re- education,Orthotic/Prosthetic Management,Self-Care/Home Management,Sensory Integration ,Soft Tissue Mobilization, Therapeutic Activities, Therapeutic Exercises Modalities Cold Pack/Ice Massage,Electric Stimulation,Hot Packs, Ultrasound Next Visit Focus/Plan Next Note Type Treatment Note Next Visit Plan STM, flexibility, strengthening
--- NOTE | 2023-05-23 17:02 | PT.OTN ---
Current Diagnoses Other chronic pain (05/23/23) Stiffness of other specified joint, not elsewhere classified (05/23/23) Cervicalgia (05/23/23) Dorsalgia, unspecified (05/23/23) Physical Therapy Treatment Note PT-OP-A Visit Information Start: 04/17/23 14:20 Freq: Status: Active Protocol: Document 05/23/23 16:15 DCW (Rec: 05/23/23 17:01 DCW [id number]) Out-Patient Physical Therapy Visit Information Visit Information Visit Type Treatment Note Visit Start Time 16:15 Visit Stop Time 17:00 Total Visit Minutes 45 Visit Number 5 Number of GUITAR REPAIRER Visits 0 Evaluation Information Evaluation Date 04/17/23 PT-OP-B Current Condition Start: 04/17/23 14:20 Freq: Status: Active Protocol: Document 04/17/23 11:00 DCW (Rec: 04/17/23 14:33 DCW [id number]) Current Condition History of Current Condition Onset Date Long-standing history Current Complaints chronic low back and neck pain History of Current Condition Pt is a 63 year old male with a multi-year history of cervical and low back pain. 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 Reports that he was treated for this pain in the [employer] between 7324-5161, was then transfered to [place], and had PT between 6240-6875. Pt retired in 2021, noticed his pain decreased significantly, but then began working once again, and his pain all returned. Pt notes that as a dentist, he has to maintain a fairly specific posture when bending over and working on a patient. Pt reports he is always on the pt 's right-hand side, which then , as he faces them, causes him to lean to his right to get to their mouth. Pt reports that he has occasionally experienced numbness in his hands, bad enough that he had difficulty holding his work instruments, but it has not happened for a while, and he can't remember any specific pattern. Additionally notes his low back typically bothers him when bending over to lift heavier objects, despite using appropriate body mechanics. Treatment Goals Patient/Caregiver Goals Pt plans to work another five years until his second halfway, would like to be able to do it pain free. PT-OP-C Subjective Start: 04/17/23 14:20 Freq: Status: Active Protocol: Document 05/23/23 16:15 DCW (Rec: 05/23/23 17:01 DCW [id number]) OP-PT Subjective Patient Comments Patient Comments Pt reports he is feeling pretty good. PT-OP-F Manual Assessment Start: 04/17/23 14:20 Freq: Status: Active Protocol: Document 04/17/23 11:00 DCW (Rec: 04/17/23 14:40 DCW [id number]) Manual Assessments Soft Tissue Assessment Soft Tissue Mobility Assessment Moderate-severe tone R cervical paraspinals, R suboccipitals, R upper trap, and R levator scap with tenderness to palpation 3/4: wincing and withdraw. Mild-moderate tone bilateral lumbar paraspinals PT-OP-K Range of Motion Start: 04/17/23 14:20 Freq: Status: Active Protocol: Document 04/17/23 11:00 DCW (Rec: 04/17/23 14:40 DCW [id number]) Cervical Spine Range of Motion Cervical Spine Active Degrees Testing Position Sitting Flexion 48 Extension 45 Rotation Left 50 Rotation Right 53 Lateral Flexion Left 33 Lateral Flexion Right 31 ROM Limitations Soft Tissue Tightness,Muscle Tone,Pain Comments R-sided stiffness felt with bilateral lateral flexion Lumbar Spine Range of Motion Lumbar Spine Active Degrees Testing Position Standing Flexion 60 Extension 15 PT-OP-L Special Tests Start: 04/17/23 14:20 Freq: Status: Active Protocol: Document 04/17/23 11:00 DCW (Rec: 04/17/23 14:40 DCW [id number]) Special Tests Cervical Spine Special Tests Slump Test Results Negative Traction Test Results Negative Spurling's Test Test Results Negative Passive Neck Flexion Test Results Negative Foraminal Compression Test Results Negative Lumbar Spine Special Tests Vertical Spine Loading Test Results Negative Straight Leg Raise Test Results Negative Manual Traction Test Results Negative Compression Test Results Negative A-P Shearing Test Results Negative PT-OP-Q Treatments Start: 04/17/23 14:20 Freq: Status: Active Protocol: Document 05/23/23 16:15 DCW (Rec: 05/23/23 17:01 DCW [id number]) Manual Therapy Treatment Soft Tissue Mobilization Cervical paraspinals Body Location Paraspinals, Suboccipitals, Upper Trap, SCM R>L Mobilization Type Strumming,Sustained Pressure, Trigger Point Release Manual Traction Cervical Details Manual cervical traction Body Position Supine PT-OP-T Assessment and Plan Start: 04/17/23 14:20 Freq: Status: Active Protocol: Document 05/23/23 16:15 DCW (Rec: 05/23/23 17:01 DCW [id number]) Physical Therapy Assessment Impairments Impairments Activity Tolerance,Functional Activities,Functional Mobility ,Pain,ROM,Soft Tissue Mobility ,Strength Goals Three Impairment Pt unable to lift heavier objects without increased low back pain Nursing Home Goal (LTG) Pt to demonstrate ability to lift from floor and transfer 50# without any increase in low back pain in order to return to usual hobby activities LTG Duration 07/16/23 Two Impairment Pt demonstrates restricted cervical ROM Nursing Home Goal (LTG) Pt to increase cervical flexion and bilateral rotation to at least 70? each in order to improve ability to appropriately turn head to look for traffic while driving . LTG Duration 07/16/23 One Impairment Pt does not have an appropriate home exercise program Short Term Goal (STG) Pt to be independent and compliant with an appropriate home exercise program STG Duration 05/18/23 Assessment Summary Assessment AROM improved some today, increased flexion 55?, extension to 50?, and rotation bilaterally to 58?. Left lateral flexion still limited to ~30?. Physical Therapy Plan Frequency and Duration Frequency of Treatment 2x/Week Plan of Care Start Date 04/17/23 Plan of Care End Date 07/16/23 Therapeutic Interventions Therapeutic Interventions Home Exercise Program,Joint Mobilizations,Lymphedema Management,Neuromuscular Re- education,Orthotic/Prosthetic Management,Self-Care/Home Management,Sensory Integration ,Soft Tissue Mobilization, Therapeutic Activities, Therapeutic Exercises Modalities Cold Pack/Ice Massage,Electric Stimulation,Hot Packs, Ultrasound Next Visit Focus/Plan Next Note Type Treatment Note Next Visit Plan STM, flexibility, strengthening
--- NOTE | 2023-06-20 15:57 | PT.OTN ---
Current Diagnoses Other chronic pain (06/20/23) Stiffness of other specified joint, not elsewhere classified (06/20/23) Cervicalgia (06/20/23) Dorsalgia, unspecified (06/20/23) Physical Therapy Treatment Note PT-OP-A Visit Information Start: 04/17/23 14:20 Freq: Status: Active Protocol: Document 06/20/23 15:15 DCW (Rec: 06/20/23 15:57 DCW [id number]) Out-Patient Physical Therapy Visit Information Visit Information Visit Type Treatment Note Visit Start Time 15:15 Visit Stop Time 16:00 Total Visit Minutes 45 Visit Number 6 Number of TRIAGE LICENSED PRACTICAL NURSE Visits 0 Evaluation Information Evaluation Date 04/17/23 PT-OP-B Current Condition Start: 04/17/23 14:20 Freq: Status: Active Protocol: Document 04/17/23 11:00 DCW (Rec: 04/17/23 14:33 DCW [id number]) Current Condition History of Current Condition Onset Date Long-standing history Current Complaints chronic low back and neck pain History of Current Condition Pt is a 63 year old male with a multi-year history of cervical and low back pain. 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 Pt retired in 2021, noticed his pain decreased significantly, but then began working once again, and his pain all returned. Pt notes that as a dentist, he has to maintain a fairly specific posture when bending over and working on a patient. Pt reports he is always on the pt 's right-hand side, which then , as he faces them, causes him to lean to his right to get to their mouth. Pt reports that he has occasionally experienced numbness in his hands, bad enough that he had difficulty holding his work instruments, but it has not happened for a while, and he can't remember any specific pattern. Additionally notes his low back typically bothers him when bending over to lift heavier objects, despite using appropriate body mechanics. Treatment Goals Patient/Caregiver Goals Pt plans to work another five years until his second fci, would like to be able to do it pain free. PT-OP-C Subjective Start: 04/17/23 14:20 Freq: Status: Active Protocol: Document 06/20/23 15:15 DCW (Rec: 06/20/23 15:57 DCW [id number]) OP-PT Subjective Patient Comments Patient Comments Pt feeling his neck is about the same. PT-OP-F Manual Assessment Start: 04/17/23 14:20 Freq: Status: Active Protocol: Document 04/17/23 11:00 DCW (Rec: 04/17/23 14:40 DCW [id number]) Manual Assessments Soft Tissue Assessment Soft Tissue Mobility Assessment Moderate-severe tone R cervical paraspinals, R suboccipitals, R upper trap, and R levator scap with tenderness to palpation 3/4: wincing and withdraw. Mild-moderate tone bilateral lumbar paraspinals PT-OP-K Range of Motion Start: 04/17/23 14:20 Freq: Status: Active Protocol: Document 04/17/23 11:00 DCW (Rec: 04/17/23 14:40 DCW [id number]) Cervical Spine Range of Motion Cervical Spine Active Degrees Testing Position Sitting Flexion 48 Extension 45 Rotation Left 50 Rotation Right 53 Lateral Flexion Left 33 Lateral Flexion Right 31 ROM Limitations Soft Tissue Tightness,Muscle Tone,Pain Comments R-sided stiffness felt with bilateral lateral flexion Lumbar Spine Range of Motion Lumbar Spine Active Degrees Testing Position Standing Flexion 60 Extension 15 PT-OP-L Special Tests Start: 04/17/23 14:20 Freq: Status: Active Protocol: Document 04/17/23 11:00 DCW (Rec: 04/17/23 14:40 DCW [id number]) Special Tests Cervical Spine Special Tests Slump Test Results Negative Traction Test Results Negative Spurling's Test Test Results Negative Passive Neck Flexion Test Results Negative Foraminal Compression Test Results Negative Lumbar Spine Special Tests Vertical Spine Loading Test Results Negative Straight Leg Raise Test Results Negative Manual Traction Test Results Negative Compression Test Results Negative A-P Shearing Test Results Negative PT-OP-Q Treatments Start: 04/17/23 14:20 Freq: Status: Active Protocol: Document 06/20/23 15:15 DCW (Rec: 06/20/23 15:57 DCW [id number]) Therapeutic Exercises Supine Exercises ER/IR Supine Exercise Name ER/IR in supine 90/90 Flexion Supine Exercise Name Overhead shoulder flexion Side bilateral Resistance 5# Horizontal Adduction Supine Exercise Name Horizontal Adduction Side bilateral Resistance 5# Serratus Punch Supine Exercise Name Serattus Punch Side bilateral Resistance 5# Other Exercises Wall clock Other Exercise Name Wall clock Resistance Green loop Resisted Ambulation Other Exercise Name Resisted UE Side-stepping Resistance Green loop Manual Therapy Treatment Soft Tissue Mobilization Cervical paraspinals Body Location Paraspinals, Suboccipitals, Upper Trap, SCM R>L Mobilization Type Strumming,Sustained Pressure, Trigger Point Release Manual Traction Cervical Details Manual cervical traction Body Position Supine PT-OP-T Assessment and Plan Start: 04/17/23 14:20 Freq: Status: Active Protocol: Document 06/20/23 15:15 DCW (Rec: 06/20/23 15:57 DCW [id number]) Physical Therapy Assessment Impairments Impairments Activity Tolerance,Functional Activities,Functional Mobility ,Pain,ROM,Soft Tissue Mobility ,Strength Goals Three Impairment Pt unable to lift heavier objects without increased low back pain Shelter Goal (LTG) Pt to demonstrate ability to lift from floor and transfer 50# without any increase in low back pain in order to return to usual hobby activities LTG Duration 07/16/23 Two Impairment Pt demonstrates restricted cervical ROM Shelter Goal (LTG) Pt to increase cervical flexion and bilateral rotation to at least 70? each in order to improve ability to appropriately turn head to look for traffic while driving . LTG Duration 07/16/23 One Impairment Pt does not have an appropriate home exercise program Short Term Goal (STG) Pt to be independent and compliant with an appropriate home exercise program STG Duration 05/18/23 Assessment Summary Assessment Continues to tolerate treatment well, addition of shoulder strengthening caused no increased pain or difficulty. Continue to focus on shoulder and cervical mobility. Physical Therapy Plan Frequency and Duration Frequency of Treatment 2x/Week Plan of Care Start Date 04/17/23 Plan of Care End Date 07/16/23 Therapeutic Interventions Therapeutic Interventions Home Exercise Program,Joint Mobilizations,Lymphedema Management,Neuromuscular Re- education,Orthotic/Prosthetic Management,Self-Care/Home Management,Sensory Integration ,Soft Tissue Mobilization, Therapeutic Activities, Therapeutic Exercises Modalities Cold Pack/Ice Massage,Electric Stimulation,Hot Packs, Ultrasound Next Visit Focus/Plan Next Note Type Treatment Note Next Visit Plan STM, flexibility, strengthening
--- NOTE | 2023-06-23 17:23 | PT.OTN ---
Current Diagnoses Other chronic pain (06/23/23) Stiffness of other specified joint, not elsewhere classified (06/23/23) Cervicalgia (06/23/23) Dorsalgia, unspecified (06/23/23) Physical Therapy Treatment Note PT-OP-A Visit Information Start: 04/17/23 14:20 Freq: Status: Active Protocol: Document 06/23/23 16:30 DCW (Rec: 06/23/23 17:23 DCW [id number]) Out-Patient Physical Therapy Visit Information Visit Information Visit Type Treatment Note Visit Start Time 16:30 Visit Stop Time 17:15 Total Visit Minutes 45 Visit Number 7 Number of CLAIMS CLERK Visits 0 Evaluation Information Evaluation Date 04/17/23 PT-OP-B Current Condition Start: 04/17/23 14:20 Freq: Status: Active Protocol: Document 04/17/23 11:00 DCW (Rec: 04/17/23 14:33 DCW [id number]) Current Condition History of Current Condition Onset Date Long-standing history Current Complaints chronic low back and neck pain History of Current Condition Pt is a 63 year old male with a multi-year history of cervical and low back pain. 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 Pt retired in 2021, noticed his pain decreased significantly, but then began working once again, and his pain all returned. Pt notes that as a dentist, he has to maintain a fairly specific posture when bending over and working on a patient. Pt reports he is always on the pt 's right-hand side, which then , as he faces them, causes him to lean to his right to get to their mouth. Pt reports that he has occasionally experienced numbness in his hands, bad enough that he had difficulty holding his work instruments, but it has not happened for a while, and he can't remember any specific pattern. Additionally notes his low back typically bothers him when bending over to lift heavier objects, despite using appropriate body mechanics. Treatment Goals Patient/Caregiver Goals Pt plans to work another five years until his second fdc, would like to be able to do it pain free. PT-OP-C Subjective Start: 04/17/23 14:20 Freq: Status: Active Protocol: Document 06/23/23 16:30 DCW (Rec: 06/23/23 17:23 DCW [id number]) OP-PT Subjective Patient Comments Patient Comments Pt notes some lingering general soreness following last session's STM. PT-OP-F Manual Assessment Start: 04/17/23 14:20 Freq: Status: Active Protocol: Document 04/17/23 11:00 DCW (Rec: 04/17/23 14:40 DCW [id number]) Manual Assessments Soft Tissue Assessment Soft Tissue Mobility Assessment Moderate-severe tone R cervical paraspinals, R suboccipitals, R upper trap, and R levator scap with tenderness to palpation 3/4: wincing and withdraw. Mild-moderate tone bilateral lumbar paraspinals PT-OP-K Range of Motion Start: 04/17/23 14:20 Freq: Status: Active Protocol: Document 04/17/23 11:00 DCW (Rec: 04/17/23 14:40 DCW [id number]) Cervical Spine Range of Motion Cervical Spine Active Degrees Testing Position Sitting Flexion 48 Extension 45 Rotation Left 50 Rotation Right 53 Lateral Flexion Left 33 Lateral Flexion Right 31 ROM Limitations Soft Tissue Tightness,Muscle Tone,Pain Comments R-sided stiffness felt with bilateral lateral flexion Lumbar Spine Range of Motion Lumbar Spine Active Degrees Testing Position Standing Flexion 60 Extension 15 PT-OP-L Special Tests Start: 04/17/23 14:20 Freq: Status: Active Protocol: Document 04/17/23 11:00 DCW (Rec: 04/17/23 14:40 DCW [id number]) Special Tests Cervical Spine Special Tests Slump Test Results Negative Traction Test Results Negative Spurling's Test Test Results Negative Passive Neck Flexion Test Results Negative Foraminal Compression Test Results Negative Lumbar Spine Special Tests Vertical Spine Loading Test Results Negative Straight Leg Raise Test Results Negative Manual Traction Test Results Negative Compression Test Results Negative A-P Shearing Test Results Negative PT-OP-Q Treatments Start: 04/17/23 14:20 Freq: Status: Active Protocol: Document 06/23/23 16:30 DCW (Rec: 06/23/23 17:23 DCW [id number]) Gym Equipment Therapeutic Ball Stabilization Exercise Details Stabilization vs Perturbations in 90/90 Ball Size/Color Blue - 45 cm Body Position Supine Therapeutic Exercises Supine Exercises Flexion Supine Exercise Name Overhead shoulder flexion Side bilateral Resistance 5# Horizontal Adduction Supine Exercise Name Horizontal Adduction Side bilateral Resistance 5# Serratus Punch Supine Exercise Name Serattus Punch Side bilateral Resistance 5# Other Exercises BOSU Walkover Other Exercise Name BOSU Walkover in plank Wall clock Other Exercise Name Wall clock Resistance Green loop Resisted Ambulation Other Exercise Name Resisted UE Side-stepping Resistance Green loop Manual Therapy Treatment Soft Tissue Mobilization Cervical paraspinals Body Location Paraspinals, Suboccipitals, Upper Trap, SCM R>L Mobilization Type Strumming,Sustained Pressure, Trigger Point Release Manual Traction Cervical Details Manual cervical traction Body Position Supine PT-OP-T Assessment and Plan Start: 04/17/23 14:20 Freq: Status: Active Protocol: Document 06/23/23 16:30 DCW (Rec: 06/23/23 17:23 DCW [id number]) Physical Therapy Assessment Impairments Impairments Activity Tolerance,Functional Activities,Functional Mobility ,Pain,ROM,Soft Tissue Mobility ,Strength Goals Three Impairment Pt unable to lift heavier objects without increased low back pain Penitentiary Goal (LTG) Pt to demonstrate ability to lift from floor and transfer 50# without any increase in low back pain in order to return to usual hobby activities LTG Duration 07/16/23 Two Impairment Pt demonstrates restricted cervical ROM Supervisor Remelt Goal (LTG) Pt to increase cervical flexion and bilateral rotation to at least 70? each in order to improve ability to appropriately turn head to look for traffic while driving . LTG Duration 07/16/23 One Impairment Pt does not have an appropriate home exercise program Short Term Goal (STG) Pt to be independent and compliant with an appropriate home exercise program STG Duration 05/18/23 Assessment Summary Assessment Pt demonstrating improving right shoulder posture, having good response with stretching and strengthening. Pt notes feeling good about recent improvements. Physical Therapy Plan Frequency and Duration Frequency of Treatment 2x/Week Plan of Care Start Date 04/17/23 Plan of Care End Date 07/16/23 Therapeutic Interventions Therapeutic Interventions Home Exercise Program,Joint Mobilizations,Lymphedema Management,Neuromuscular Re- education,Orthotic/Prosthetic Management,Self-Care/Home Management,Sensory Integration ,Soft Tissue Mobilization, Therapeutic Activities, Therapeutic Exercises Modalities Cold Pack/Ice Massage,Electric Stimulation,Hot Packs, Ultrasound Next Visit Focus/Plan Next Note Type Treatment Note Next Visit Plan STM, flexibility, strengthening
--- NOTE | 2023-06-30 17:16 | PT.OTN ---
Current Diagnoses Other chronic pain (06/30/23) Stiffness of other specified joint, not elsewhere classified (06/30/23) Cervicalgia (06/30/23) Dorsalgia, unspecified (06/30/23) Physical Therapy Treatment Note PT-OP-A Visit Information Start: 04/17/23 14:20 Freq: Status: Active Protocol: Document 06/30/23 16:30 DCW (Rec: 06/30/23 17:16 DCW [id number]) Out-Patient Physical Therapy Visit Information Visit Information Visit Type Treatment Note Visit Start Time 16:30 Visit Stop Time 17:15 Total Visit Minutes 45 Visit Number 8 Number of POWER BRAKE OPERATOR Visits 0 Evaluation Information Evaluation Date 04/17/23 PT-OP-B Current Condition Start: 04/17/23 14:20 Freq: Status: Active Protocol: Document 04/17/23 11:00 DCW (Rec: 04/17/23 14:33 DCW [id number]) Current Condition History of Current Condition Onset Date Long-standing history Current Complaints chronic low back and neck pain History of Current Condition Pt is a 63 year old male with a multi-year history of cervical and low back pain. 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 Reports that he was treated for this pain in the [employer] between [id number], was then transfered to [place], and had PT between [id number]. Pt retired in 2021, noticed his pain decreased significantly, but then began working once again, and his pain all returned. Pt notes that as a dentist, he has to maintain a fairly specific posture when bending over and working on a patient. Pt reports he is always on the pt 's right-hand side, which then , as he faces them, causes him to lean to his right to get to their mouth. Pt reports that he has occasionally experienced numbness in his hands, bad enough that he had difficulty holding his work instruments, but it has not happened for a while, and he can't remember any specific pattern. Additionally notes his low back typically bothers him when bending over to lift heavier objects, despite using appropriate body mechanics. Treatment Goals Patient/Caregiver Goals Pt plans to work another five years until his second longterm, would like to be able to do it pain free. PT-OP-C Subjective Start: 04/17/23 14:20 Freq: Status: Active Protocol: Document 06/30/23 16:30 DCW (Rec: 06/30/23 17:16 DCW [id number]) OP-PT Subjective Patient Comments Patient Comments Pt feeling pretty well overall . PT-OP-F Manual Assessment Start: 04/17/23 14:20 Freq: Status: Active Protocol: Document 04/17/23 11:00 DCW (Rec: 04/17/23 14:40 DCW [id number]) Manual Assessments Soft Tissue Assessment Soft Tissue Mobility Assessment Moderate-severe tone R cervical paraspinals, R suboccipitals, R upper trap, and R levator scap with tenderness to palpation 3/4: wincing and withdraw. Mild-moderate tone bilateral lumbar paraspinals PT-OP-K Range of Motion Start: 04/17/23 14:20 Freq: Status: Active Protocol: Document 04/17/23 11:00 DCW (Rec: 04/17/23 14:40 DCW [id number]) Cervical Spine Range of Motion Cervical Spine Active Degrees Testing Position Sitting Flexion 48 Extension 45 Rotation Left 50 Rotation Right 53 Lateral Flexion Left 33 Lateral Flexion Right 31 ROM Limitations Soft Tissue Tightness,Muscle Tone,Pain Comments R-sided stiffness felt with bilateral lateral flexion Lumbar Spine Range of Motion Lumbar Spine Active Degrees Testing Position Standing Flexion 60 Extension 15 PT-OP-L Special Tests Start: 04/17/23 14:20 Freq: Status: Active Protocol: Document 04/17/23 11:00 DCW (Rec: 04/17/23 14:40 DCW [id number]) Special Tests Cervical Spine Special Tests Slump Test Results Negative Traction Test Results Negative Spurling's Test Test Results Negative Passive Neck Flexion Test Results Negative Foraminal Compression Test Results Negative Lumbar Spine Special Tests Vertical Spine Loading Test Results Negative Straight Leg Raise Test Results Negative Manual Traction Test Results Negative Compression Test Results Negative A-P Shearing Test Results Negative PT-OP-Q Treatments Start: 04/17/23 14:20 Freq: Status: Active Protocol: Document 06/30/23 16:30 DCW (Rec: 06/30/23 17:16 DCW [id number]) Therapeutic Exercises Supine Exercises Flexion Supine Exercise Name Overhead shoulder flexion Side bilateral Resistance 5# Horizontal Adduction Supine Exercise Name Horizontal Adduction Side bilateral Resistance 5# Serratus Punch Supine Exercise Name Serattus Punch Side bilateral Resistance 5# Other Exercises Wall clock Other Exercise Name Wall clock Resistance Blue loop Resisted Ambulation Other Exercise Name Resisted UE Side-stepping Resistance Blue loop Manual Therapy Treatment Soft Tissue Mobilization Cervical paraspinals Body Location Paraspinals, Suboccipitals, Upper Trap, SCM R>L Mobilization Type Strumming,Sustained Pressure, Trigger Point Release Manual Traction Cervical Details Manual cervical traction Body Position Supine PT-OP-T Assessment and Plan Start: 04/17/23 14:20 Freq: Status: Active Protocol: Document 06/30/23 16:30 DCW (Rec: 06/30/23 17:16 DCW [id number]) Physical Therapy Assessment Impairments Impairments Activity Tolerance,Functional Activities,Functional Mobility ,Pain,ROM,Soft Tissue Mobility ,Strength Goals Three Impairment Pt unable to lift heavier objects without increased low back pain Detention Goal (LTG) Pt to demonstrate ability to lift from floor and transfer 50# without any increase in low back pain in order to return to usual hobby activities LTG Duration 07/16/23 Two Impairment Pt demonstrates restricted cervical ROM Cementer Machine Joiner Goal (LTG) Pt to increase cervical flexion and bilateral rotation to at least 70? each in order to improve ability to appropriately turn head to look for traffic while driving . LTG Duration 07/16/23 One Impairment Pt does not have an appropriate home exercise program Short Term Goal (STG) Pt to be independent and compliant with an appropriate home exercise program STG Duration 05/18/23 Assessment Summary Assessment Increased resistance with some strengthening today, pt tolerated well, although was slightly more fatigued. Good response to STM/stretching. Physical Therapy Plan Frequency and Duration Frequency of Treatment 2x/Week Plan of Care Start Date 04/17/23 Plan of Care End Date 07/16/23 Therapeutic Interventions Therapeutic Interventions Home Exercise Program,Joint Mobilizations,Lymphedema Management,Neuromuscular Re- education,Orthotic/Prosthetic Management,Self-Care/Home Management,Sensory Integration ,Soft Tissue Mobilization, Therapeutic Activities, Therapeutic Exercises Modalities Cold Pack/Ice Massage,Electric Stimulation,Hot Packs, Ultrasound Next Visit Focus/Plan Next Note Type Treatment Note Next Visit Plan STM, flexibility, strengthening
--- NOTE | 2023-07-03 17:23 | PT.OTN ---
Current Diagnoses Other chronic pain (07/03/23) Stiffness of other specified joint, not elsewhere classified (07/03/23) Cervicalgia (07/03/23) Dorsalgia, unspecified (07/03/23) Physical Therapy Treatment Note PT-OP-A Visit Information Start: 04/17/23 14:20 Freq: Status: Active Protocol: Document 07/03/23 16:30 DCW (Rec: 07/03/23 17:23 DCW [id number]) Out-Patient Physical Therapy Visit Information Visit Information Visit Type Treatment Note Visit Start Time 16:30 Visit Stop Time 17:15 Total Visit Minutes 45 Visit Number 9 Number of HEAD COUNSELOR Visits 0 Evaluation Information Evaluation Date 04/17/23 PT-OP-B Current Condition Start: 04/17/23 14:20 Freq: Status: Active Protocol: Document 04/17/23 11:00 DCW (Rec: 04/17/23 14:33 DCW [id number]) Current Condition History of Current Condition Onset Date Long-standing history Current Complaints chronic low back and neck pain History of Current Condition Pt is a 63 year old male with a multi-year history of cervical and low back pain. 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 Pt retired in 2021, noticed his pain decreased significantly, but then began working once again, and his pain all returned. Pt notes that as a dentist, he has to maintain a fairly specific posture when bending over and working on a patient. Pt reports he is always on the pt 's right-hand side, which then , as he faces them, causes him to lean to his right to get to their mouth. Pt reports that he has occasionally experienced numbness in his hands, bad enough that he had difficulty holding his work instruments, but it has not happened for a while, and he can't remember any specific pattern. Additionally notes his low back typically bothers him when bending over to lift heavier objects, despite using appropriate body mechanics. Treatment Goals Patient/Caregiver Goals Pt plans to work another five years until his second long-term, would like to be able to do it pain free. PT-OP-C Subjective Start: 04/17/23 14:20 Freq: Status: Active Protocol: Document 07/03/23 16:30 DCW (Rec: 07/03/23 17:23 DCW [id number]) OP-PT Subjective Patient Comments Patient Comments Pt notes no real noticeable change. PT-OP-F Manual Assessment Start: 04/17/23 14:20 Freq: Status: Active Protocol: Document 04/17/23 11:00 DCW (Rec: 04/17/23 14:40 DCW [id number]) Manual Assessments Soft Tissue Assessment Soft Tissue Mobility Assessment Moderate-severe tone R cervical paraspinals, R suboccipitals, R upper trap, and R levator scap with tenderness to palpation 3/4: wincing and withdraw. Mild-moderate tone bilateral lumbar paraspinals PT-OP-K Range of Motion Start: 04/17/23 14:20 Freq: Status: Active Protocol: Document 04/17/23 11:00 DCW (Rec: 04/17/23 14:40 DCW [id number]) Cervical Spine Range of Motion Cervical Spine Active Degrees Testing Position Sitting Flexion 48 Extension 45 Rotation Left 50 Rotation Right 53 Lateral Flexion Left 33 Lateral Flexion Right 31 ROM Limitations Soft Tissue Tightness,Muscle Tone,Pain Comments R-sided stiffness felt with bilateral lateral flexion Lumbar Spine Range of Motion Lumbar Spine Active Degrees Testing Position Standing Flexion 60 Extension 15 PT-OP-L Special Tests Start: 04/17/23 14:20 Freq: Status: Active Protocol: Document 04/17/23 11:00 DCW (Rec: 04/17/23 14:40 DCW [id number]) Special Tests Cervical Spine Special Tests Slump Test Results Negative Traction Test Results Negative Spurling's Test Test Results Negative Passive Neck Flexion Test Results Negative Foraminal Compression Test Results Negative Lumbar Spine Special Tests Vertical Spine Loading Test Results Negative Straight Leg Raise Test Results Negative Manual Traction Test Results Negative Compression Test Results Negative A-P Shearing Test Results Negative PT-OP-Q Treatments Start: 04/17/23 14:20 Freq: Status: Active Protocol: Document 07/03/23 16:30 DCW (Rec: 07/03/23 17:23 DCW [id number]) Gym Equipment Cable Column (Body Solid) Reverse Fly Resistance 15# Rows Resistance 30# Lat Pull Down Resistance 40# Therapeutic Exercises Standing Exercises Shrugs Standing Exercise Name Shrugs Side bilateral Resistance 10# Manual Therapy Treatment Soft Tissue Mobilization Cervical paraspinals Body Location Paraspinals, Suboccipitals, Upper Trap, SCM R>L Mobilization Type Strumming,Sustained Pressure, Trigger Point Release Manual Traction Cervical Details Manual cervical traction Body Position Supine PT-OP-T Assessment and Plan Start: 04/17/23 14:20 Freq: Status: Active Protocol: Document 07/03/23 16:30 DCW (Rec: 07/03/23 17:23 DCW [id number]) Physical Therapy Assessment Impairments Impairments Activity Tolerance,Functional Activities,Functional Mobility ,Pain,ROM,Soft Tissue Mobility ,Strength Goals Three Impairment Pt unable to lift heavier objects without increased low back pain Grain Origination Specialist Goal (LTG) Pt to demonstrate ability to lift from floor and transfer 50# without any increase in low back pain in order to return to usual hobby activities LTG Duration 07/16/23 Two Impairment Pt demonstrates restricted cervical ROM Grain Origination Specialist Goal (LTG) Pt to increase cervical flexion and bilateral rotation to at least 70? each in order to improve ability to appropriately turn head to look for traffic while driving . LTG Duration 07/16/23 One Impairment Pt does not have an appropriate home exercise program Short Term Goal (STG) Pt to be independent and compliant with an appropriate home exercise program STG Duration 05/18/23 Assessment Summary Assessment Pt showing increased cervical mobility following STM and flexibility today, maintained reduced tone following strengthening activities. Continue to attempt to incorporate strengthening with STM and stretching to improve mobility and posture. Physical Therapy Plan Frequency and Duration Frequency of Treatment 2x/Week Plan of Care Start Date 04/17/23 Plan of Care End Date 07/16/23 Therapeutic Interventions Therapeutic Interventions Home Exercise Program,Joint Mobilizations,Lymphedema Management,Neuromuscular Re- education,Orthotic/Prosthetic Management,Self-Care/Home Management,Sensory Integration ,Soft Tissue Mobilization, Therapeutic Activities, Therapeutic Exercises Modalities Cold Pack/Ice Massage,Electric Stimulation,Hot Packs, Ultrasound Next Visit Focus/Plan Next Note Type Treatment Note Next Visit Plan STM, flexibility, strengthening
--- NOTE | 2023-08-12 14:32 | PT.OTN ---
Current Diagnoses Other chronic pain (08/12/23) Stiffness of other specified joint, not elsewhere classified (08/12/23) Cervicalgia (08/12/23) Dorsalgia, unspecified (08/12/23) Physical Therapy Treatment Note PT-OP-A Visit Information Start: 04/17/23 14:20 Freq: Status: Active Protocol: Document 08/12/23 13:45 DCW (Rec: 08/12/23 14:32 DCW [id number]) Out-Patient Physical Therapy Visit Information Visit Information Visit Type Progress Note Visit Start Time 13:45 Visit Stop Time 14:30 Total Visit Minutes 45 Visit Number 10 Number of PHARMACIST ASSISTANT Visits 0 Evaluation Information Evaluation Date 04/17/23 PT-OP-B Current Condition Start: 04/17/23 14:20 Freq: Status: Active Protocol: Document 04/17/23 11:00 DCW (Rec: 04/17/23 14:33 DCW [id number]) Current Condition History of Current Condition Onset Date Long-standing history Current Complaints chronic low back and neck pain History of Current Condition Pt is a 63 year old male with a multi-year history of cervical and low back pain. 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 Pt retired in 2021, noticed his pain decreased significantly, but then began working once again, and his pain all returned. Pt notes that as a dentist, he has to maintain a fairly specific posture when bending over and working on a patient. Pt reports he is always on the pt 's right-hand side, which then , as he faces them, causes him to lean to his right to get to their mouth. Pt reports that he has occasionally experienced numbness in his hands, bad enough that he had difficulty holding his work instruments, but it has not happened for a while, and he can't remember any specific pattern. Additionally notes his low back typically bothers him when bending over to lift heavier objects, despite using appropriate body mechanics. Treatment Goals Patient/Caregiver Goals Pt plans to work another five years until his second longterm, would like to be able to do it pain free. PT-OP-C Subjective Start: 04/17/23 14:20 Freq: Status: Active Protocol: Document 08/12/23 13:45 DCW (Rec: 08/12/23 14:32 DCW [id number]) OP-PT Subjective Patient Comments Patient Comments Feeling pretty good overall, noticing improvement in pain after work day. PT-OP-F Manual Assessment Start: 04/17/23 14:20 Freq: Status: Active Protocol: Document 08/12/23 13:45 DCW (Rec: 08/12/23 14:16 DCW [id number]) Manual Assessments Soft Tissue Assessment Soft Tissue Mobility Assessment Moderate-severe tone R cervical paraspinals, R suboccipitals, R upper trap, and R levator scap with tenderness to palpation 3/4: wincing and withdraw. Mild-moderate tone bilateral lumbar paraspinals PT-OP-K Range of Motion Start: 04/17/23 14:20 Freq: Status: Active Protocol: Document 08/12/23 13:45 DCW (Rec: 08/12/23 14:16 DCW [id number]) Cervical Spine Range of Motion Cervical Spine Active Degrees Testing Position Sitting Flexion 55 Extension 40 Rotation Left 60 Rotation Right 60 Lateral Flexion Left 35 Lateral Flexion Right 35 Lumbar Spine Range of Motion Lumbar Spine Active Degrees Testing Position Standing Flexion 60 Extension 25 PT-OP-L Special Tests Start: 04/17/23 14:20 Freq: Status: Active Protocol: Document 04/17/23 11:00 DCW (Rec: 04/17/23 14:40 DCW [id number]) Special Tests Cervical Spine Special Tests Slump Test Results Negative Traction Test Results Negative Spurling's Test Test Results Negative Passive Neck Flexion Test Results Negative Foraminal Compression Test Results Negative Lumbar Spine Special Tests Vertical Spine Loading Test Results Negative Straight Leg Raise Test Results Negative Manual Traction Test Results Negative Compression Test Results Negative A-P Shearing Test Results Negative PT-OP-Q Treatments Start: 04/17/23 14:20 Freq: Status: Active Protocol: Document 08/12/23 13:45 DCW (Rec: 08/12/23 14:32 DCW [id number]) Manual Therapy Treatment Soft Tissue Mobilization Cervical paraspinals Body Location Paraspinals, Suboccipitals, Upper Trap, SCM R>L Mobilization Type Strumming,Sustained Pressure, Trigger Point Release Manual Traction Cervical Details Manual cervical traction Body Position Supine PT-OP-T Assessment and Plan Start: 04/17/23 14:20 Freq: Status: Active Protocol: Document 08/12/23 13:45 DCW (Rec: 08/12/23 14:32 DCW [id number]) Physical Therapy Assessment Impairments Impairments Activity Tolerance,Functional Activities,Functional Mobility ,Pain,ROM,Soft Tissue Mobility ,Strength Goals Three Impairment Pt unable to lift heavier objects without increased low back pain Pest Control Worker Goal (LTG) Pt to demonstrate ability to lift from floor and transfer 50# without any increase in low back pain in order to return to usual hobby activities LTG Duration 07/16/23 Two Impairment Pt demonstrates restricted cervical ROM Mcc Goal (LTG) Pt to increase cervical flexion and bilateral rotation to at least 70? each in order to improve ability to appropriately turn head to look for traffic while driving . LTG Duration 07/16/23 One Impairment Pt does not have an appropriate home exercise program Short Term Goal (STG) Pt to be independent and compliant with an appropriate home exercise program STG Duration 05/18/23 Assessment Summary Assessment Pt still demonstrating significantly increased tone in cervical paraspinals and parascapular muscles, especially right-sided, however is showing some improvements in overall ROM and pain management. Continue to focus on decreasing tone, improving strength, and returning to pain-free work function. Physical Therapy Plan Frequency and Duration Frequency of Treatment 2x/Week Plan of Care Start Date 08/12/23 Plan of Care End Date 10/13/23 Therapeutic Interventions Therapeutic Interventions Home Exercise Program,Joint Mobilizations,Lymphedema Management,Neuromuscular Re- education,Orthotic/Prosthetic Management,Self-Care/Home Management,Sensory Integration ,Soft Tissue Mobilization, Therapeutic Activities, Therapeutic Exercises Modalities Cold Pack/Ice Massage,Electric Stimulation,Hot Packs, Ultrasound Next Visit Focus/Plan Next Note Type Treatment Note Next Visit Plan STM, flexibility, strengthening
--- NOTE | 2023-08-12 14:33 | PT.OPPOC ---
Physical, Occupational & Speech Therapy At [facility] Current Diagnoses Other chronic pain (08/12/23) Stiffness of other specified joint, not elsewhere classified (08/12/23) Cervicalgia (08/12/23) Dorsalgia, unspecified (08/12/23) Visit Care Team Role Provider Type Chris Mcgill DO Attending Provider Physician Family Provider Primary Care Provider Referring Provider Specialty: Family Practice Address: [address] [place] [address], [facility] Email: Plan Of Care PT-OP-T Assessment and Plan Start: 04/17/23 14:20 Freq: Status: Active Protocol: Document 08/12/23 13:45 DCW (Rec: 08/12/23 14:32 DCW [id number]) Physical Therapy Assessment Impairments Impairments Activity Tolerance,Functional Activities,Functional Mobility ,Pain,ROM,Soft Tissue Mobility ,Strength Goals Three Impairment Pt unable to lift heavier objects without increased low back pain Group Home Goal (LTG) Pt to demonstrate ability to lift from floor and transfer 50# without any increase in low back pain in order to return to usual hobby activities LTG Duration 07/16/23 Two Impairment Pt demonstrates restricted cervical ROM Ribbon Hanking Machine Operator Goal (LTG) Pt to increase cervical flexion and bilateral rotation to at least 70? each in order to improve ability to appropriately turn head to look for traffic while driving . LTG Duration 07/16/23 One Impairment Pt does not have an appropriate home exercise program Short Term Goal (STG) Pt to be independent and compliant with an appropriate home exercise program STG Duration 05/18/23 Assessment Summary Assessment Pt still demonstrating significantly increased tone in cervical paraspinals and parascapular muscles, especially right-sided, however is showing some improvements in overall ROM and pain management. Continue to focus on decreasing tone, improving strength, and returning to pain-free work function. Physical Therapy Plan Frequency and Duration Frequency of Treatment 2x/Week Plan of Care Start Date 08/12/23 Plan of Care End Date 10/13/23 Therapeutic Interventions Therapeutic Interventions Home Exercise Program,Joint Mobilizations,Lymphedema Management,Neuromuscular Re- education,Orthotic/Prosthetic Management,Self-Care/Home Management,Sensory Integration ,Soft Tissue Mobilization, Therapeutic Activities, Therapeutic Exercises Modalities Cold Pack/Ice Massage,Electric Stimulation,Hot Packs, Ultrasound Next Visit Focus/Plan Next Note Type Treatment Note Next Visit Plan STM, flexibility, strengthening Plan of Care Dates Plan of Care Start Date 08/12/23 Plan of Care End Date 10/13/23 Electronically Signed by: Justin Bernard, PT 08/12/23 7031 If you are in agreement with this Plan of Care, please return a signed and dated copy. I have reviewed this Plan of Care and certify that the skilled therapy services above are required to meet the patient?s needs. Physician Signature Date Printed Name and Credentials Clinical Instructor Signature Printed Name and Credentials
--- NOTE | 2023-08-12 14:33 | PT.OPPOC ---
Physical, Occupational & Speech Therapy At [facility] Current Diagnoses Other chronic pain (08/12/23) Stiffness of other specified joint, not elsewhere classified (08/12/23) Cervicalgia (08/12/23) Dorsalgia, unspecified (08/12/23) Visit Care Team Role Provider Type Chris Mcgill DO Attending Provider Physician Family Provider Primary Care Provider Referring Provider Specialty: Family Practice Address: [address] [place] [address], [facility] Email: Plan Of Care PT-OP-T Assessment and Plan Start: 04/17/23 14:20 Freq: Status: Active Protocol: Document 08/12/23 13:45 DCW (Rec: 08/12/23 14:32 DCW [id number]) Physical Therapy Assessment Impairments Impairments Activity Tolerance,Functional Activities,Functional Mobility ,Pain,ROM,Soft Tissue Mobility ,Strength Goals Three Impairment Pt unable to lift heavier objects without increased low back pain Shelter Goal (LTG) Pt to demonstrate ability to lift from floor and transfer 50# without any increase in low back pain in order to return to usual hobby activities LTG Duration 07/16/23 Two Impairment Pt demonstrates restricted cervical ROM Restaurant General Manager Goal (LTG) Pt to increase cervical flexion and bilateral rotation to at least 70? each in order to improve ability to appropriately turn head to look for traffic while driving . LTG Duration 07/16/23 One Impairment Pt does not have an appropriate home exercise program Short Term Goal (STG) Pt to be independent and compliant with an appropriate home exercise program STG Duration 05/18/23 Assessment Summary Assessment Pt still demonstrating significantly increased tone in cervical paraspinals and parascapular muscles, especially right-sided, however is showing some improvements in overall ROM and pain management. Continue to focus on decreasing tone, improving strength, and returning to pain-free work function. Physical Therapy Plan Frequency and Duration Frequency of Treatment 2x/Week Plan of Care Start Date 08/12/23 Plan of Care End Date 10/13/23 Therapeutic Interventions Therapeutic Interventions Home Exercise Program,Joint Mobilizations,Lymphedema Management,Neuromuscular Re- education,Orthotic/Prosthetic Management,Self-Care/Home Management,Sensory Integration ,Soft Tissue Mobilization, Therapeutic Activities, Therapeutic Exercises Modalities Cold Pack/Ice Massage,Electric Stimulation,Hot Packs, Ultrasound Next Visit Focus/Plan Next Note Type Treatment Note Next Visit Plan STM, flexibility, strengthening Plan of Care Dates Plan of Care Start Date 08/12/23 Plan of Care End Date 10/13/23 Electronically Signed by: Justin Bernard, PT 08/12/23 6308 If you are in agreement with this Plan of Care, please return a signed and dated copy. I have reviewed this Plan of Care and certify that the skilled therapy services above are required to meet the patient?s needs. Physician Signature Date Printed Name and Credentials Clinical Instructor Signature Printed Name and Credentials
--- NOTE | 2023-08-15 14:29 | PT.OTN ---
Current Diagnoses Other chronic pain (08/15/23) Stiffness of other specified joint, not elsewhere classified (08/15/23) Cervicalgia (08/15/23) Dorsalgia, unspecified (08/15/23) Physical Therapy Treatment Note PT-OP-A Visit Information Start: 04/17/23 14:20 Freq: Status: Active Protocol: Document 08/15/23 13:45 DCW (Rec: 08/15/23 14:29 DCW [id number]) Out-Patient Physical Therapy Visit Information Visit Information Visit Type Treatment Note Visit Start Time 13:45 Visit Stop Time 14:30 Total Visit Minutes 45 Visit Number 11 Number of PODIATRIST Visits 0 Evaluation Information Evaluation Date 04/17/23 PT-OP-B Current Condition Start: 04/17/23 14:20 Freq: Status: Active Protocol: Document 04/17/23 11:00 DCW (Rec: 04/17/23 14:33 DCW [id number]) Current Condition History of Current Condition Onset Date Long-standing history Current Complaints chronic low back and neck pain History of Current Condition Pt is a 63 year old male with a multi-year history of cervical and low back pain. 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 Reports that he was treated for this pain in the [employer] between 2840-6461, was then transfered to [place], and had PT between 1844-8338. Pt retired in 2021, noticed his pain decreased significantly, but then began working once again, and his pain all returned. Pt notes that as a dentist, he has to maintain a fairly specific posture when bending over and working on a patient. Pt reports he is always on the pt 's right-hand side, which then , as he faces them, causes him to lean to his right to get to their mouth. Pt reports that he has occasionally experienced numbness in his hands, bad enough that he had difficulty holding his work instruments, but it has not happened for a while, and he can't remember any specific pattern. Additionally notes his low back typically bothers him when bending over to lift heavier objects, despite using appropriate body mechanics. 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 PT-OP-C Subjective Start: 04/17/23 14:20 Freq: Status: Active Protocol: Document 08/15/23 13:45 DCW (Rec: 08/15/23 14:29 DCW [id number]) OP-PT Subjective Patient Comments Patient Comments Pt doing well today. PT-OP-F Manual Assessment Start: 04/17/23 14:20 Freq: Status: Active Protocol: Document 08/12/23 13:45 DCW (Rec: 08/12/23 14:16 DCW [id number]) Manual Assessments Soft Tissue Assessment Soft Tissue Mobility Assessment Moderate-severe tone R cervical paraspinals, R suboccipitals, R upper trap, and R levator scap with tenderness to palpation 3/4: wincing and withdraw. Mild-moderate tone bilateral lumbar paraspinals PT-OP-K Range of Motion Start: 04/17/23 14:20 Freq: Status: Active Protocol: Document 08/12/23 13:45 DCW (Rec: 08/12/23 14:16 DCW [id number]) Cervical Spine Range of Motion Cervical Spine Active Degrees Testing Position Sitting Flexion 55 Extension 40 Rotation Left 60 Rotation Right 60 Lateral Flexion Left 35 Lateral Flexion Right 35 Lumbar Spine Range of Motion Lumbar Spine Active Degrees Testing Position Standing Flexion 60 Extension 25 PT-OP-L Special Tests Start: 04/17/23 14:20 Freq: Status: Active Protocol: Document 04/17/23 11:00 DCW (Rec: 04/17/23 14:40 DCW [id number]) Special Tests Cervical Spine Special Tests Slump Test Results Negative Traction Test Results Negative Spurling's Test Test Results Negative Passive Neck Flexion Test Results Negative Foraminal Compression Test Results Negative Lumbar Spine Special Tests Vertical Spine Loading Test Results Negative Straight Leg Raise Test Results Negative Manual Traction Test Results Negative Compression Test Results Negative A-P Shearing Test Results Negative PT-OP-Q Treatments Start: 04/17/23 14:20 Freq: Status: Active Protocol: Document 08/15/23 13:45 DCW (Rec: 08/15/23 14:29 DCW [id number]) Manual Therapy Treatment Soft Tissue Mobilization Cervical paraspinals Body Location Paraspinals, Suboccipitals, Upper Trap, SCM R>L Mobilization Type Strumming,Sustained Pressure, Trigger Point Release Manual Traction Cervical Details Manual cervical traction Body Position Supine PT-OP-T Assessment and Plan Start: 04/17/23 14:20 Freq: Status: Active Protocol: Document 08/15/23 13:45 DCW (Rec: 08/15/23 14:29 DCW [id number]) Physical Therapy Assessment Impairments Impairments Activity Tolerance,Functional Activities,Functional Mobility ,Pain,ROM,Soft Tissue Mobility ,Strength Goals Three Impairment Pt unable to lift heavier objects without increased low back pain Back Order Clerk Goal (LTG) Pt to demonstrate ability to lift from floor and transfer 50# without any increase in low back pain in order to return to usual hobby activities LTG Duration 07/16/23 Two Impairment Pt demonstrates restricted cervical ROM Back Order Clerk Goal (LTG) Pt to increase cervical flexion and bilateral rotation to at least 70? each in order to improve ability to appropriately turn head to look for traffic while driving . LTG Duration 07/16/23 One Impairment Pt does not have an appropriate home exercise program Short Term Goal (STG) Pt to be independent and compliant with an appropriate home exercise program STG Duration 05/18/23 Assessment Summary Assessment Pt showing very good overall progress with muscle tone. Right shoulder displaying improved positioning, no longer in a forward rolled position. Physical Therapy Plan Frequency and Duration Frequency of Treatment 2x/Week Plan of Care Start Date 08/12/23 Plan of Care End Date 10/13/23 Therapeutic Interventions Therapeutic Interventions Home Exercise Program,Joint Mobilizations,Lymphedema Management,Neuromuscular Re- education,Orthotic/Prosthetic Management,Self-Care/Home Management,Sensory Integration ,Soft Tissue Mobilization, Therapeutic Activities, Therapeutic Exercises Modalities Cold Pack/Ice Massage,Electric Stimulation,Hot Packs, Ultrasound Next Visit Focus/Plan Next Note Type Treatment Note Next Visit Plan STM, flexibility, strengthening
--- NOTE | 2023-11-05 10:40 | PT.OPDS ---
Current Diagnoses Other chronic pain (08/15/23) Stiffness of other specified joint, not elsewhere classified (08/15/23) Cervicalgia (08/15/23) Dorsalgia, unspecified (08/15/23) Visit Care Team Role Provider Type Chris Mcgill DO Attending Provider Physician Family Provider Primary Care Provider Referring Provider Specialty: Family Practice Address: [address] [place] [address], [facility] Email: Visit Number Visit Number 11 Discharge Summary PT-OP-B Current Condition Start: 04/17/23 14:20 Freq: Status: Active Protocol: Document 04/17/23 11:00 DCW (Rec: 04/17/23 14:33 DCW [id number]) Current Condition History of Current Condition Onset Date Long-standing history Current Complaints chronic low back and neck pain History of Current Condition Pt is a 63 year old male with a multi-year history of cervical and low back pain. 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 Pt retired in 2021, noticed his pain decreased significantly, but then began working once again, and his pain all returned. Pt notes that as a dentist, he has to maintain a fairly specific posture when bending over and working on a patient. Pt reports he is always on the pt 's right-hand side, which then , as he faces them, causes him to lean to his right to get to their mouth. Pt reports that he has occasionally experienced numbness in his hands, bad enough that he had difficulty holding his work instruments, but it has not happened for a while, and he can't remember any specific pattern. Additionally notes his low back typically bothers him when bending over to lift heavier objects, despite using appropriate body mechanics. 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 PT-OP-C Subjective Start: 04/17/23 14:20 Freq: Status: Active Protocol: Document 08/15/23 13:45 DCW (Rec: 08/15/23 14:29 DCW [id number]) OP-PT Subjective Patient Comments Patient Comments Pt doing well today. PT-OP-F Manual Assessment Start: 04/17/23 14:20 Freq: Status: Active Protocol: Document 08/12/23 13:45 DCW (Rec: 08/12/23 14:16 DCW [id number]) Manual Assessments Soft Tissue Assessment Soft Tissue Mobility Assessment Moderate-severe tone R cervical paraspinals, R suboccipitals, R upper trap, and R levator scap with tenderness to palpation 3/4: wincing and withdraw. Mild-moderate tone bilateral lumbar paraspinals PT-OP-K Range of Motion Start: 04/17/23 14:20 Freq: Status: Active Protocol: Document 08/12/23 13:45 DCW (Rec: 08/12/23 14:16 DCW [id number]) Cervical Spine Range of Motion Cervical Spine Active Degrees Testing Position Sitting Flexion 55 Extension 40 Rotation Left 60 Rotation Right 60 Lateral Flexion Left 35 Lateral Flexion Right 35 Lumbar Spine Range of Motion Lumbar Spine Active Degrees Testing Position Standing Flexion 60 Extension 25 PT-OP-L Special Tests Start: 04/17/23 14:20 Freq: Status: Active Protocol: Document 04/17/23 11:00 DCW (Rec: 04/17/23 14:40 DCW [id number]) Special Tests Cervical Spine Special Tests Slump Test Results Negative Traction Test Results Negative Spurling's Test Test Results Negative Passive Neck Flexion Test Results Negative Foraminal Compression Test Results Negative Lumbar Spine Special Tests Vertical Spine Loading Test Results Negative Straight Leg Raise Test Results Negative Manual Traction Test Results Negative Compression Test Results Negative A-P Shearing Test Results Negative PT-OP-T Assessment and Plan Start: 04/17/23 14:20 Freq: Status: Active Protocol: Document 11/05/23 10:40 DCW (Rec: 11/05/23 10:40 DCW [id number]) Physical Therapy Assessment Assessment Summary Assessment Pt has now not been seen in more than two months. Pt will be discharged from skilled therapy, will require a new referral in order to return. Physical Therapy Plan Discharge Physical Therapy Discharge Reasons No Longer Attending PT
== END 2023-11-10 10:19 | disposition home or self-care (01) ==
LOC: PHYS 13:45
PROVIDERS: Family Provider Family Medicine; PCP Family Medicine; Referring Provider Family Medicine; Visit Provider Family Medicine
DX: M54.9 Dorsalgia, unspecified (principal); G89.29 Other chronic pain; M54.2 Cervicalgia; M25.69 Stiffness of other specified joint, not elsewhere classified
CPT/HCPCS: 97110; 97140; 97162

== ENCOUNTER → 2024-04-17 10:58 | Outpatient (CLI) | payer BC, MEDICARE, OTHER, SELFPAY ==
[2024-04-17 11:51] LABS: Add Manual Diff / Slide Review NO; Basophils Absolute Auto 0 /uL (0-100); Basophils Percent Auto 0.7 % (0-2); Eosinophils Absolute Auto 100 /uL (0-450); Eosinophils Percent Auto 2.6 % (2-4); Hematocrit 47.7 % (41-53); Hemoglobin 16.3 g/dL (13.5-17.5); Lymphocytes Absolute Auto 1700 /uL (1100-4500); Lymphocytes Percent Auto 34.4 % (25-40); Mean Corpuscular HGB Conc 34.2 % (30-36); Mean Corpuscular Hemoglobin 30.4 PG (26-34); Mean Corpuscular Volume 88.9 fL (80-100); Monocytes Absolute Auto 400 /uL (0-900); Monocytes Percent Auto 8.6 % (3-14); Neutrophils Absolute Auto 2600 /uL (1500-7000); Neutrophils Percent Auto 53.7 % (50-75); Platelet Count 266 X10^3/uL (150-400); Red Blood Cell Count 5.36 X10^6/uL (4.5-5.9); Red Cell Distribution Width 14.2 % (11.6-14.8); White Blood Cell Count 4.9 X10^3/uL (4.5-11.0)
[2024-04-17 11:56] LABS: Hemoglobin A1C% w Est Avg Glu 5.6 % (4.0-6.0)
[2024-04-17 12:22] LABS: Alanine Aminotransferase 48 IU/L (<50); Albumin 4.5 g/dL (3.5-5.0); Albumin Globulin Ratio 1.5 (1.0-2.8); Alkaline Phosphatase 55 U/L (38-126); Aspartate Aminotransferase 42 IU/L (17-59); BUN Creatinine Ratio 15.7 (6-22); Bilirubin Total 2.7 mg/dL (0.2-1.3); Blood Urea Nitrogen 17 mg/dL (9-20); Calcium 9.1 mg/dL (8.4-10.2); Carbon Dioxide 30 mmol/L (22-32); Chloride 105 mmol/L (98-107); Cholesterol 137 mg/dL (140-199); Estimated Glomerular Filt Rate > 60 mL/min (>60); Globulin 3.1 g/dL (1.7-4.1); Glucose 104 mg/dL (80-110); HDL Cholesterol 52 mg/dL (40-60); HEMOLYSIS < 15 (0-50); LDL Cholesterol Calculated 72 mg/dL (<100); Potassium 4.8 mmol/L (3.4-5.1); Sodium 141 mmol/L (137-145); Total Protein 7.6 g/dL (6.3-8.2); Triglycerides 67 mg/dL (35-150)
[2024-04-17 12:52] LABS: Prostate Specific Antigen Scrn 4.04 ng/mL (0.1-4.0)
== END ==
PROVIDERS: Family Provider Family Medicine; PCP Family Medicine; Referring Provider Family Medicine; Visit Provider Family Medicine
DX: R73.03 Prediabetes (principal); E78.5 Hyperlipidemia, unspecified; I10 Essential (primary) hypertension; Z12.5 Encounter for screening for malignant neoplasm of prostate
CPT/HCPCS: 36415; 80053; 80061; 83036; 85025; G0103

== ENCOUNTER → 2024-09-18 09:19 | Outpatient (CLI) | payer BC, MEDICARE, OTHER, SELFPAY ==
[2024-09-18 10:34] LABS: Cholesterol 189 mg/dL (140-199); HDL Cholesterol 49 mg/dL (40-60); LDL Cholesterol Calculated 131 mg/dL (<100); Triglycerides 46 mg/dL (35-150)
== END ==
PROVIDERS: Family Provider Family Medicine; PCP Family Medicine; Referring Provider Family Medicine; Visit Provider Family Medicine
DX: E78.5 Hyperlipidemia, unspecified (principal)
CPT/HCPCS: 36415; 80061

== ENCOUNTER → 2025-01-07 09:29 | Outpatient (CLI) | payer BC, MEDICARE, OTHER, SELFPAY ==
[2025-01-07 11:19] LABS: Cholesterol 257 mg/dL (140-199); HDL Cholesterol 59 mg/dL (40-60); LDL Cholesterol Calculated 189 mg/dL (<100); Triglycerides 47 mg/dL (35-150)
== END ==
PROVIDERS: Family Provider Family Medicine; PCP Family Medicine; Referring Provider Family Medicine; Visit Provider Family Medicine
DX: E78.5 Hyperlipidemia, unspecified (principal)
CPT/HCPCS: 36415; 80061

== ENCOUNTER → 2025-07-09 09:29 | Outpatient (CLI) | payer BC, MEDICARE, OTHER, SELFPAY ==
[2025-07-09 09:57] LABS: Add Manual Diff / Slide Review NO; Hematocrit 44.5 % (41-53); Hemoglobin 15.3 g/dL (13.5-17.5); Lymphocytes Absolute Auto 1600 /uL (1100-4500); Mean Corpuscular HGB Conc 34.4 % (30-36); Mean Corpuscular Hemoglobin 30.7 PG (26-34); Mean Corpuscular Volume 89.2 fL (80-100); Platelet Count 301 X10^3/uL (150-400)
[2025-07-09 10:28] LABS: Alanine Aminotransferase 25 IU/L (<50); Albumin 4.5 g/dL (3.5-5.0); Albumin Globulin Ratio 1.4 (1.0-2.8); Alkaline Phosphatase 78 U/L (38-126); Blood Urea Nitrogen 27 mg/dL (9-20); Calcium 9.0 mg/dL (8.4-10.2); Carbon Dioxide 28 mmol/L (22-32); Chloride 102 mmol/L (98-107); Cholesterol 198 mg/dL (140-199); Estimated Glomerular Filt Rate > 60 mL/min (>60); Globulin 3.3 g/dL (1.7-4.1); Glucose 94 mg/dL (70-99); HDL Cholesterol 54 mg/dL (40-60); HEMOLYSIS < 15 (0-50); Potassium 4.4 mmol/L (3.4-5.1); Sodium 138 mmol/L (137-145); Total Protein 7.8 g/dL (6.3-8.2); Triglycerides 49 mg/dL (35-150)
== END ==
PROVIDERS: Family Provider Family Medicine; PCP Family Medicine; Referring Provider Family Medicine; Visit Provider Family Medicine
DX: Z12.5 Encounter for screening for malignant neoplasm of prostate (principal); R39.9 Unspecified symptoms and signs involving the genitourinary system; E78.5 Hyperlipidemia, unspecified; I10 Essential (primary) hypertension
CPT/HCPCS: 36415; 80053; 80061; 85025; G0103